=== PATIENT | female | born 1945 | race Caucasian/White ===

== ENCOUNTER → 2023-10-22 | Outpatient (CLI) | payer MEDICARE, SELFPAY ==
[2023-10-22 18:13] LABS: Absolute Lymphocyte Count 2.19 X10^3/uL (0.83-4.51); Absolute Neutrophil Count 8.8 X10^3/uL (2.0-7.7); Basophil# 0.05 X10^3/uL; Basophil% 0.4 % (0-1); Eosinophil# 0.39 X10^3/uL; Eosinophils% 3.1 % (0-5); Hematocrit 41.1 % (37-47); Hemoglobin 12.9 g/dL (12.0-15.0); Lymphocyte # 2.19 X10^3/ul (0.83-4.51); Lymphocyte % 17.4 % (19-41); Mean Corp Hgb Conc 31.4 g/dL (32-36); Mean Corpuscular Hgb 28.9 pg (27.0-32.0); Mean Corpuscular Volume 91.9 fL (81-99); Mean Platelet Vol. 11.1 fl (6.2-12.0); Monocyte# 1.08 X10^3/uL; Monocyte% 8.6 % (0-10); NRBC Flagged by Analyzer 0 % (0-5); Neutrophil # 8.78 X10^3/uL (2.7-7.7); Neutrophil % 69.9 % (47-70); Platelet Count 447 K/mm3 (150-450); RBC Distribution Width CV 12.5 % (11.6-14.6); RBC Distribution Width SD 42.2 fl (35.1-43.9); Red Blood Count 4.47 M/mm3 (4.2-5.4); White Blood Count 12.6 K/mm3 (4.4-11.0)
[2023-10-22 18:29] LABS: Vitamin D,25 Hydroxy 57.2 ng/mL
[2023-10-22 18:38] LABS: ALB/GLOB Ratio 0.7 RATIO (0.9-2.4); AST(SGOT) 27 U/L (15-37); Alanine Aminotransfer ALT/SGPT 29 U/L (13-56); Albumin, Serum 3.4 g/dL (3.2-5.0); Alkaline Phosphatase 78 U/L (45-117); Anion Gap 6 (5-15); BUN 14 mg/dL (7-18); BUN/Creat Ratio 20.5 RATIO (10-20); Calcium,Total 9.7 mg/dL (8.5-10.1); Chloride 107 mmol/L (98-107); Cholesterol 169 mg/dL (200); Creatinine, Serum 0.68 mg/dL (0.55-1.02); EST Glomerular Filtration Rate 88 mL/min (>60); Est Glom Filt Rate - Afr Amer 107 mL/min (>60); Globulin 4.7 g/dL (2.2-4.2); Glucose 81 mg/dL (74-106); High Density Lipoprotein 49 mg/dL; Potassium 3.8 mmol/L (3.5-5.1); Protein, Total 8.1 g/dL (6.4-8.2); Sodium Level 141 mmol/L (136-145); Thyroid Stim Hormone (TSH) 0.91 uIU/mL (0.358-3.74); Triglycerides 80 mg/dL; Very Low Density Lipoprotein 16 mg/dL (5-40)
== END | disposition home or self-care (01) ==
LOC: MFPLAB 15:31
PROVIDERS: PCP Family Medicine; Visit Provider Family Medicine
DX: R60.9 Edema, unspecified (principal); E78.2 Mixed hyperlipidemia; M81.0 Age-related osteoporosis without current pathological fracture
CPT/HCPCS: 36415; 80053; 80061; 82306; 84443; 85025

== ENCOUNTER → 2023-11-11 | Outpatient (CLI) | payer MEDICARE, SELFPAY ==
[2023-11-11 17:38] LABS: Absolute Lymphocyte Count 2.31 X10^3/uL (0.83-4.51); Absolute Neutrophil Count 4.3 X10^3/uL (2.0-7.7); Basophil# 0.06 X10^3/uL; Basophil% 0.7 % (0-1); Eosinophil# 0.57 X10^3/uL; Eosinophils% 7.1 % (0-5); Hematocrit 38.6 % (37-47); Hemoglobin 12.3 g/dL (12.0-15.0); Lymphocyte # 2.31 X10^3/ul (0.83-4.51); Lymphocyte % 28.8 % (19-41); Mean Corp Hgb Conc 31.9 g/dL (32-36); Mean Corpuscular Hgb 28.7 pg (27.0-32.0); Mean Corpuscular Volume 90.2 fL (81-99); Mean Platelet Vol. 11.6 fl (6.2-12.0); Monocyte# 0.77 X10^3/uL; Monocyte% 9.6 % (0-10); NRBC Flagged by Analyzer 0 % (0-5); Neutrophil # 4.28 X10^3/uL (2.7-7.7); Neutrophil % 53.6 % (47-70); Platelet Count 279 K/mm3 (150-450); RBC Distribution Width CV 13.2 % (11.6-14.6); RBC Distribution Width SD 43.2 fl (35.1-43.9); Red Blood Count 4.28 M/mm3 (4.2-5.4)
== END | disposition home or self-care (01) ==
LOC: MFPLAB 14:54
PROVIDERS: PCP Family Medicine; Visit Provider Family Medicine
DX: D72.829 Elevated white blood cell count, unspecified (principal)
CPT/HCPCS: 36415; 85025

== ENCOUNTER → 2023-12-04 | Outpatient (CLI) | payer MEDICARE, SELFPAY ==
--- NOTE | 2023-12-04 14:04 | BD_ITS ---
STUDY: DUAL ENERGY X-RAY ABSORPTIOMETRY / DXA REASON FOR EXAM: Female, 78 years old. [id number] TECHNIQUE: Bone Mineral Density (BMD) measurements of lumbar spine and bilateral hips were obtained. COMPARISON: None. FINDINGS: Lumbar Spine (L1-L4): g/cm2 (0.816) / T-score (-2.1) / Z-score (0.5) Findings are suggestive of osteopenia with a high fracture risk. Left Femur Total: g/cm2 (0.701) / T-score (-2.0) / Z-score (0.0) Left Femoral Neck: g/cm2 (0.548) / T-score (-2.7) / Z-score (-0.5) Right Femur Total: g/cm2 (0.705) / T-score (-1.9) / Z-score (0.0) Right Femoral Neck: g/cm2 (0.590) / T-score (-2.3) / Z-score (-0.1) BD/Dexa Bone Density Study IMPRESSION: The patient is considered osteoporotic as outlined below according to World [employer] Organization (WHO) criteria with a high fracture risk. Reference Information: The T-score is the number of standard deviations above or below the standard which is normal for young adults at their peak bone mineral density. The World Health Organization (WHO) interprets the T-scores as follows: Above -1 Normal bone density Between -1 and -2.5 Osteopenia Equal to / or below -2.5 Osteoporosis As a practical clinical guideline, osteopenia may be graded as follows: Mild -1 through -1.5 Moderate -1.6 through -2.0 Severe -2.1 through -2.4 The Z-score is the number of standard deviations above or below age-matched controls. A Z-score of less than -1.5 would be considered abnormal. References: 1. NIH Osteoporosis and Related Bone Diseases www osteo.org 2. International Society for Clinical Densitometry www iscd.org 3. National Osteoporosis Foundation www nof.org Electronically Signed: Dalton Meyer MD at 15:06 EST ,
--- OUTSIDE RECORDS SUMMARY | 2023-12-04 17:53 | XMS RPT_ITS | CCD ---
Author Name Unknown Address [address] [facility] [address] [place] [address] Organization [facility] Care Team Providers Care Engineering Analyst Name Role Phone Sonja MIRANDA, Ronald Montez Primary Care Provider SONJA, RONALD Primary Care Unavailable LUZ MARIA, FOSTER Referring Unavailable LUZ MARIA, FOSTER Attending Unavailable SONJA, RONALD Primary Care Unavailable LUZ MARIA, FOSTER Referring Unavailable LUZ MARIA, FOSTER Attending Unavailable SONJA, RONALD Primary Care Unavailable LUZ MARIA, FOSTER Referring Unavailable LUZ MARIA, FOSTER Attending Unavailable BRIDENTHAL, MINNIE Attending Unavailable BRIDENTHAL, MINNIE Referring Unavailable SONJA, RONALD Primary Care Unavailable SONJA, RONALD Primary Care Unavailable LUZ MARIA, FOSTER Attending Unavailable LUZ MARIA, FOSTER Referring Unavailable LUZ MARIA, FOSTER Attending Unavailable SONJA, RONALD Primary Care Unavailable LUZ MARIA, FOSTER Referring Unavailable SONJA, RONALD Primary Care Unavailable LUZ MARIA, FOSTER Referring Unavailable LUZ MARIA, FOSTER Attending Unavailable SONJA, RONALD Primary Care Unavailable LUZ MARIA, FOSTER Referring Unavailable LUZ MARIA, FOSTER Attending Unavailable SONJA, RONALD Referring Unavailable LUZ MARIA, FOSTER Attending Unavailable SONJA, RONALD Primary Care Unavailable SONJA, RONALD Attending Unavailable SONJA, RONALD Primary Care Unavailable BRIDENTHAL, MINNIE Attending Unavailable SONJA, RONALD Primary Care Unavailable SONJA, RONALD Attending Unavailable SONJA, RONALD Primary Care Unavailable SONJA, RONALD Primary Care Unavailable LUZ MARIA, FOSTER Referring Unavailable SONJA, RONALD Attending Unavailable SONJA, RONALD Primary Care Unavailable SONJA, RONALD Primary Care Unavailable BRIDENTHAL, MINNIE Attending Unavailable SONJA, RONALD Primary Care Unavailable SONJA, RONALD Attending Unavailable BRIDENTHAL, MINNIE Attending Unavailable SONJA, RONALD Primary Care Unavailable LUZ MARIA, FOSTER Attending Unavailable SONJA, RONALD Primary Care Unavailable LUZ MARIA, FOSTER Referring Unavailable RONALD CASILLAS Attending Unavailable RONALD CASILLAS Primary Care Unavailable RONALD CASILLAS Referring Unavailable RONALD CASILLAS Attending Unavailable RONALD CASILLAS Primary Care Unavailable RONALD CASILLAS Primary Care Unavailable RONALD CASILLAS Referring Unavailable RONALD CASILLAS Attending Unavailable RONALD CASILLAS Attending Unavailable RONALD CASILLAS Primary Care Unavailable RONALD CASILLAS Attending Unavailable RONALD CASILLAS Primary Care Unavailable RONALD CASILLAS Primary Care Unavailable FOSTER LOERA Referring Unavailable Ronald Casillas MD Primary Care Provider Allergies Allergy Classification Reported Allergen(s) Allergy Type Date of Onset Reaction(s) Facility (20 sources) Penicillins Drug Intolerance [address] [facility] (17 sources) traMADol Drug Allergy 3 Nausea Only, Other [facility] Medications Current Medications Medication Drug Class(es) Dates Sig (Normalized) Sig (Original) ascorbic acid 113 mg / copper gluconate 0.4 mg / docosahexaenoic acid 87.5 mg / eicosapentaenoic acid 163 mg / lutein 2.5 mg / tocopherol acetate 100 unt / zeaxanthin 0.5 mg / zinc oxide 17.4 mg oral capsule (20 sources) Vitamin C Multiple Vitamins-Minerals (PreserVision AREDS 2) capsule Take by mouth. 0 Active atorvastatin 10 mg oral tablet (20 sources) HMG-CoA Reductase Inhibitor Start: 11-09-2022 End: 08-05-2023 take 1 tablet by mouth in the morning atorvastatin (Lipitor) 10 MG tablet TAKE 1 TABLET BY MOUTH IN THE MORNING 90 tablet 0 08/05/2023 Active B Complex Vitamins (B COMPLEX PO) (20 sources) B Complex Vitami ns (B COMPLEX PO) Take by mouth. 0 Active Calcium Carb-Cholecalciferol (CALCIUM 1000 + D PO) (20 sources) Calcium Carb-Cholecalciferol (CALCIUM 1000 + D PO) Take by mouth. 0 Active cholecalciferol 0.025 mg oral capsule (20 sources) Vitamin D cholecalciferol (Vitamin D-3) 25 MCG (1000 UT) capsule Take by mouth. 0 Active COD LIVER OIL/VITAMINS A & D PO (20 sources) COD LIVER OIL/VITAMINS A & D PO Take by mouth. 0 Active ferrous sulfate (20 sources) Ferrous Sulfate Dried (High Potency Iron) 65 MG tablet Take by mouth. 0 Active furosemide 40 mg oral tablet (20 sources) Loop Diuretic Start: 07-08-2023 take 0.5 tablet by mouth once daily furosemide (Lasix) 40 MG tablet Take 0.5 tablets (20 mg) by mouth daily. 30 tablet 1 07/08/2023 Active Completed/Discontinued Medications Medication Drug Class(es) Dates Sig (Normalized) Sig (Original) clindamycin 150 mg oral capsule (1 source) Lincosamide Antibacterial Start: 10-29-2022 End: 01-28-2023 take 1 capsule by mouth twice daily clindamycin (Cleocin) 150 MG capsule TAKE 1 CAPSULE BY MOUTH TWICE DAILY UNTIL GONE 0 10/29/2022 01/28/2023 Discontinued (Med list cleanup) 28 actuat teriparatide 0.02 mg/actuat pen injector (1 source) Parathyroid Hormone Analog Start: 11-02-2022 End: 01-29-2023 inject 20 ug by subcutaneous injection once daily Forteo injection INJECT 20MCG UNDER THE SKIN ONCE DAILY 9.6 mL 0 11/02/2022 01/29/2023 Discontinued traMADol hydrochloride 50 mg oral tablet (3 sources) Opioid Agonist Start: 06-10-2023 End: 06-17-2023 take 1 tablet by mouth every six hours as needed for pain traMADol (Ultram) 50 MG tablet Indications: Acute left ankle pain Take 1 tablet (50 mg) by mouth every 6 hours as needed for severe pain (7-10) for up to 7 days. 28 tablet 0 06/10/2023 06/11/2023 Discontinued (Side effects) Problems Active Problems Problem Classification Problem Date Documented Da te Episodic/Chronic Disorders of lipid metabolism (20 sources) Hyperlipidemia; Translations: [Hyperlipidemia, unspecified] Onset: 04-27-2021 07-27-2022 Chronic Nutritional deficiencies (20 sources) Vitamin D deficiency; Translations: [Vitamin D deficiency, unspecified] Onset: 04-27-2021 07-27-2022 Chronic Osteoporosis (20 sources) Senile osteoporosis; Translations: [Age-related osteoporosis without current pathological fracture] Onset: 11-09-2021 07-27-2022 Chronic Other connective tissue disease (20 sources) Pain in left foot; Translations: [Pain in left foot] Onset: 05-22-2023 05-22-2023 Episodic Other connective tissue disease (2 sources) Pain in left foot; Translations: [Pain in left foot] Onset: 05-22-2023 Episodic Other connective tissue disease (2 sources) Trigger thumb, right thumb; Translations: [Trigger thumb, right thumb] Onset: 02-13-2023 Episodic Other female genital disorders (3 sources) Pain in female genitalia on intercourse; Translations: [Unspecified dyspareunia] Onset: 08-07-2023 08-07-2023 Chronic Other non-traumatic joint disorders (3 sources) Arthralgia of the ankle and/or foot; Translations: [Pain in left ankle and joints of left foot] Onset: 06-03-2023 05-15-2023 Episodic Other non-traumatic joint disorders (5 sources) Acute ankle pain; Translations: [Pain in left ankle and joints of left foot] 06-03-2023 Episodic Other non-traumatic joint disorders (1 source) Pain in left ankle and joints of left foot; Translations: [Pain in left ankle and joints of left foot] Onset: 05-13-2023 Episodic Other screening for suspected conditions (not mental disorders or infectious disease) (2 sources) Encounter for screening for diabetes mellitus; Translations: [Encounter for screening for diabetes mellitus] Onset: 05-13-2023 Episodic Spondylosis; intervertebral disc disorders; other back problems (20 sources) Sciatica; Translations: [Sciatica, left side] Onset: 05-22-2023 05-22-2023 Episodic Unclassified (2 sources) Trigger Finger; Translations: [Trigger Finger] Onset: 07-08-2023 Unclassified (2 sources) Injections; Translations: [Injections] Onset: 05-14-2023 Unclassified (2 sources) Finger Pain; Translations: [Finger Pain] Onset: 02-13-2023 Unclassified (2 sources) Medication Problem; Translations: [Medication Problem] Onset: 11-21-2022 Unclassified (2 sources) Medication Check; Translations: [Medication Check] Onset: 11-09-2022 Unclassified (2 sources) Health Maintenance; Translations: [Health Maintenance] Onset: 11-09-2022 Past or Other Problems Problem Classification Problem Date Documented Da te Episodic/Chronic Disorders of teeth and jaw (20 sources) Toothache; Translations: [Other specified disorders of teeth and supporting structures] Onset: 11-21-2022 11-21-2022 Episodic Nutritional deficiencies (20 sources) Cobalamin deficiency; Translations: [Deficiency of other specified B group vitamins] Onset: 11-09-2021 07-27-2022 Episodic Other connective tissue disease (20 sources) Pain in right thumb; Translations: [Pain in right finger(s)] Onset: 01-29-2023 Episodic Other connective tissue disease (20 sources) Trigger thumb of right hand; Translations: [Trigger thumb, right thumb] Onset: 02-13-2023 02-13-2023 Episodic Other connective tissue disease (2 sources) Pain in right finger(s); Translations: [Pain in right finger(s)] Onset: 01-29-2023 Episodic Other non-traumatic joint disorders (20 sources) Ankle pain; Translations: [Pain in left ankle and joints of left foot] Onset: 05-13-2023 05-13-2023 Episodic Residual codes; unclassified (20 sources) Edema; Translations: [Edema, unspecified] Onset: 04-27-2021 07-27-2022 Episodic Results Test Name Value Interpretation Reference Range Facil ity Vital Signs Date Time Vital Sign Value Performing Clinician Faci lity 08-07-2023 15:09-0400 Body mass index (BMI) [Ratio] 26.26 kg/m2 Minnie Rainesmikijose DRUM CARRIER - FLOOR RENOVATOR Work Phone: [facility] 08-07-2023 15:09-0400 Body temperature 98.4 [degF] Minnie Rainesmikijose DRUM CARRIER - FLOOR RENOVATOR Work Phone: [facility] 08-07-2023 15:09-0400 Body weight 63.05 kg Minnie Lopez DRUM CARRIER - FLOOR RENOVATOR Work Phone: [facility] 08-07-2023 15:09-0400 Diastolic blood pressure 73 mm[Hg] Minnie Rainesmikijose DRUM CARRIER - FLOOR RENOVATOR Work Phone: [facility] 08-07-2023 15:09-0400 Heart rate 90 /min Minnie Lopez DRUM CARRIER - FLOOR RENOVATOR Work Phone: [facility] 08-07-2023 15:09-0400 Respiratory rate 20 /min Minnie Bridenthal DRUM CARRIER - FLOOR RENOVATOR Work Phone: [facility] 08-07-2023 15:09-0400 SaO2% (BldA) [Mass fraction] 96 % Minnie Bridenthal DRUM CARRIER - FLOOR RENOVATOR Work Phone: [facility] 08-07-2023 15:09-0400 Systolic blood pressure 128 mm[Hg] Minnie Bridenthal DRUM CARRIER - FLOOR RENOVATOR Work Phone: [facility] 06-11-2023 10:17-0400 Body temperature 97.81 [degF] Minnie Bridenthal DRUM CARRIER - FLOOR RENOVATOR Work Phone: [facility] 06-11-2023 10:17-0400 Diastolic blood pressure 72 mm[Hg] Minnie Bridenthal DRUM CARRIER - FLOOR RENOVATOR Work Phone: [facility] 06-11-2023 10:17-0400 Heart rate 89 /min Minnie Bridenthal DRUM CARRIER - FLOOR RENOVATOR Work Phone: [facility] 06-11-2023 10:17-0400 Respiratory rate 24 /min Minnie Bridenthal DRUM CARRIER - FLOOR RENOVATOR Work Phone: [facility] 06-11-2023 10:17-0400 SaO2% (BldA) [Mass fraction] 98 % Minnie Bridenthal DRUM CARRIER - FLOOR RENOVATOR Work Phone: [facility] 06-11-2023 10:17-0400 Systolic blood pressure 118 mm[Hg] Minnie Bridenthal DRUM CARRIER - FLOOR RENOVATOR Work Phone: [facility] 06-03-2023 06:55-0400 Body height 154.9 cm Ronald Casillas MD Work Phone: [facility] 06-03-2023 06:55-0400 Body mass index (BMI) [Ratio] 25.96 kg/m2 Ronald Casillas MD Work Phone: [facility] 06-03-2023 06:55-0400 Body weight 62.32 kg Ronald Casillas MD Work Phone: [facility] 06-03-2023 06:55-0400 Diastolic blood pressure 75 mm[Hg] Ronald Casillas MD Work Phone: [facility] 06-03-2023 06:55-0400 Heart rate 101 /min Ronald Casillas MD Work Phone: [facility] 06-03-2023 06:55-0400 SaO2% (BldA) [Mass fraction] 98 % Ronald Casillas MD Work Phone: [facility] 06-03-2023 06:55-0400 Systolic blood pressure 120 mm[Hg] Ronald Casillas MD Work Phone: [facility] 05-22-2023 13:49-0400 Body mass index (BMI) [Ratio] 26.83 kg/m2 Minnie Bridenthal DRUM CARRIER - FLOOR RENOVATOR Work Phone: [facility] 05-22-2023 13:49-0400 Body temperature 98.4 [degF] Minnie Bridenthal DRUM CARRIER - FLOOR RENOVATOR Work Phone: [facility] 05-22-2023 13:49-0400 Body weight 64.41 kg Minnie Bridenthal DRUM CARRIER - FLOOR RENOVATOR Work Phone: [facility] 05-22-2023 13:49-0400 Diastolic blood pressure 80 mm[Hg] Minnie Bridenthal DRUM CARRIER - FLOOR RENOVATOR Work Phone: [facility] 05-22-2023 13:49-0400 Heart rate 80 /min Minnie Bridenthal DRUM CARRIER - FLOOR RENOVATOR Work Phone: [facility] 05-22-2023 13:49-0400 Respiratory rate 20 /min Minnie Bridenthal DRUM CARRIER - FLOOR RENOVATOR Work Phone: [facility] 05-22-2023 13:49-0400 SaO2% (BldA) [Mass fraction] 99 % Minnie Bridenthal DRUM CARRIER - FLOOR RENOVATOR Work Phone: [facility] 05-22-2023 13:49-0400 Systolic blood pressure 132 mm[Hg] Minnie Bridenthal DRUM CARRIER - FLOOR RENOVATOR Work Phone: [facility] 05-14-2023 14:11-0400 Body height 154.9 cm Ronald Casillas MD Work Phone: [facility] 05-14-2023 14:11-0400 Body mass index (BMI) [Ratio] 27.25 kg/m2 Ronald Casillas MD Work Phone: [facility] 05-14-2023 14:11-0400 Body weight 65.41 kg Ronald Casillas MD Work Phone: [facility] 05-14-2023 14:11-0400 Diastolic blood pressure 66 mm[Hg] Ronald Casillas MD Work Phone: [facility] 05-14-2023 14:11-0400 Heart rate 74 /min Ronald Casillas MD Work Phone: [facility] 05-14-2023 14:11-0400 SaO2% (BldA) [Mass fraction] 95 % Ronald Casillas MD Work Phone: [facility] 05-14-2023 14:11-0400 Systolic blood pressure 144 mm[Hg] Ronald Casillas MD Work Phone: [facility] 01-28-2023 15:44-0400 Body mass index (BMI) [Ratio] 27.4 kg/m2 Minnie Bridenthal DRUM CARRIER - FLOOR RENOVATOR Work Phone: [facility] 01-28-2023 15:44-0400 Body weight 65.77 kg Minnie Bridenthal DRUM CARRIER - FLOOR RENOVATOR Work Phone: [facility] 01-28-2023 15:44-0400 Diastolic blood pressure 64 mm[Hg] Minnie Bridenthal DRUM CARRIER - FLOOR RENOVATOR Work Phone: [facility] 01-28-2023 15:44-0400 Heart rate 76 /min Minnie Bridenthal DRUM CARRIER - FLOOR RENOVATOR Work Phone: [facility] 01-28-2023 15:44-0400 Respiratory rate 20 /min Minnie Bridenthal DRUM CARRIER - FLOOR RENOVATOR Work Phone: [facility] 01-28-2023 15:44-0400 SaO2% (BldA) [Mass fraction] 98 % Minnie Bridenthal DRUM CARRIER - FLOOR RENOVATOR Work Phone: [facility] 01-28-2023 15:44-0400 Systolic blood pressure 110 mm[Hg] Minnie Bridenthal DRUM CARRIER - FLOOR RENOVATOR Work Phone: [facility] Encounters Encounter Date Encounter Type Care Provider Facility Start: 08-07-2023 End: 08-07-2023 Office outpatient visit 15 minutes Minnie Oluenthal DRUM CARRIER - FLOOR RENOVATOR Work Phone: [facility] Procedures Date Procedure Procedure Detail Performing Clinician Start: 05-13-2023 Adult depression screening assessment Ronald Casillas MD Work Phone: Plan of Treatment Date Care Activity Detail Author Start: 06-12-2024 Medicare Advantage Annual Wellness Visit (AWV) Medicare Advantage Annual Wellness Visit (AWV) [facility] Start: 05-14-2024 End: 05-14-2024 Patient encounter procedure 05/14/2024 8:30 AM EDT Office Visit [facility] [address] [place] [id number] Ronald Casillas MD [address] [place] [id number] [facility] Start: 05-13-2024 COVID-19 Vaccine (4 - Booster for Pfizer series) COVID-19 Vaccine (4 - Booster for Pfizer series) [facility] Immunizations Immunization Date Immunization Notes Care Provider Fa cility 06-21-2022 Influenza, Seasonal, Quadrivalent, Adjuvanted Minnie Oluenthal DRUM CARRIER - FLOOR RENOVATOR Work Phone: [facility] 06-21-2022 influenza virus vacc ine, unspecified formulation Ronald Casillas MD Work Phone: [facility] 08-29-2021 Pfizer SARS-CoV-2 Vaccination Minnie Bridenthal DRUM CARRIER - FLOOR RENOVATOR Work Phone: [facility] 07-19-2021 Influenza, Seasonal, Quadrivalent, Adjuvanted Minnie Oluenthal DRUM CARRIER - FLOOR RENOVATOR Work Phone: [facility] 02-08-2021 Pfizer SARS-CoV-2 Vaccination Minnie Oluenthal DRUM CARRIER - FLOOR RENOVATOR Work Phone: [facility] 01-18-2021 Pfizer SARS-CoV-2 Vaccination Minnie Oluenthal DRUM CARRIER - FLOOR RENOVATOR Work Phone: [facility] Payers Date Payer Category Payer Medicare [employer] MEDICARE A DVANTAGE AETNA MEDICARE [id number] 2021-Present [address] [place] [address] Medicare HMO [id number] 2021 Medicare [id number] Social History Date Type Detail Facility Tobacco smoking status NHIS Never smoked tobacco [facility] Start: 01-28-2023 End: 05-14-2023 Alcohol intake Current non-drinker of alcohol (finding) [facility] Start: 11-08-2022 History SDOH Financial 5 [facility] Start: 11-08-2022 History SDOH Food Worry 1 [facility] Start: 11-08-2022 History SDOH Transport Med 2 [facility] Start: 1945 Sex Assigned At Not on file [facility] Start: 01-18-2023 End: 07-08-2023 Exposure to SARS-CoV-2 (event) Not sure [facility] Start: 02-12-2023 End: 05-13-2023 History of [address] function [facility] Start: 02-12-2023 End: 05-13-2023 Tobacco use panel [facility] How hard is it for y ou to pay for the very basics like food, housing, medical care, and heating Not hard at all [facility] (I/We) worried wheth er (my/our) food would run out before (I/we) got money to buy more. Never true [facility] How often to you hav e a drink containing alcohol? Never [facility] In the past 12 month s, was there a time when you were not able to pay the mortgage or rent on time? No [facility] Medical Equipment Procedure Code Equipment Code Equipment Origin al Text Equipment Identifier Dates USE PEN NEEDLE O NCE DAILY [id number] Start: 10-25-2022 End: 01-28-2023 Use as instructed [id number] Start: 07-23-2023 End: 07-22-2024 Clinical Notes 01-28-2023 to 08-07-2023 Assessment & Plan Note - KENNY Chin CNP - 08/07/2023 5:43 PM EDTAssessment & Plan Note - KENNY Chin CNP - 08/07/2023 5:43 PM EDTPatient InstructionsAttachments Note Date & Type Note Facility 08-07-2023 Evaluation + Plan note Associated Problem(s): Dyspareunia, female Pelvic exam unremarkable. No cervical motion tenderness no masses or pain with bimanual exam. Suspect dyspareunia secondary to insufficient lubrication. Recommend [id number]-xqf-[id number] vaginal suppositories to help with moisture prior to intercourse, using generous amounts of topical lubricant also. Reassurance provided. [facility] 08-07-2023 Miscellaneous Notes Associated Problem(s): Dyspareunia, female Pelvic exam unremarkable. No cervical motion tenderness no masses or pain with bimanual exam. Suspect dyspareunia secondary to insufficient lubrication. Recommend ddng-lmy-wlocvhd vaginal suppositories to help with moisture prior to intercourse, using generous amounts of topical lubricant also. Reassurance provided. documented in this encounter [facility] 08-07-2023 History of Presen t illness Narrative Patient was identified by name and Date of . Images from the original note were not included. 08/07/2023 Kristi Weiner (: 1945) is a 78 y.o. female , Established patient, here for evaluation of the following chief complaint(s): Abdominal Pain ASSESSMENT/PLAN: 1. Dyspareunia, female Assessment & Plan: Pelvic exam unremarkable. No cervical motion tenderness no masses or pain with bimanual exam. Suspect dyspareunia secondary to insufficient lubrication. Recommend feeb-fai-tnnycvy vaginal suppositories to help with moisture prior to intercourse, using generous amounts of topical lubricant also. Reassurance provided. Follow up if symptoms worsen or fail to improve. SUBJECTIVE/OBJECTIVE: HPI - Kristi Weiner (: 1945) is a 78 y.o. female , Established patient, here for the evaluation of the following chief complaint(s): Abdominal Pain Presents today for pain with intercourse. Reports that she has had in the last couple years increased pain in the abdomen when having intercourse. States it is only with penetration. No bleeding. Reports that the abdomen will be slightly sore after intercourse but quickly feels back to normal. Her and her (86yo) have not been sexually active for the last month or 2 but wanted to come in and get checked out as it has been painful with intercourse. Denies any change in bowel or bladder. States that they do use K-Y jelly and her puts it on his penis prior to intercourse. Prior to Admission medications Medication Sig Start Date End Date Taking? Authorizing Provider alpha tocopherol (Vitamin E) 400 units capsule Take 400 Units by mouth. Yes Historical Provider, atorvastatin (Lipitor) 10 MG tablet TAKE 1 TABLET BY MOUTH IN THE MORNING 08/05/23 Yes Minnie Lopez APRN - KAY B Complex Vitamins (B COMPLEX PO) Take by mouth. Yes Historical Provider, Calcium Carb-Cholecalciferol (CALCIUM 1000 + D PO) Take by mouth. Yes Historical Provider, cholecalciferol (Vitamin D-3) 25 MCG (1000 UT) capsule Take by mouth. Yes Historical Provider, COD LIVER OIL/VITAMINS A & D PO Take by mouth. Yes Historical Provider, coenzyme Q-10 50 MG capsule Take by mouth. Yes Historical Provider, cyanocobalamin (Vitamin B-12) 1000 MCG tablet Take 1,000 mcg by mouth daily. Yes Historical Provider, Ferrous Sulfate Dried (High Potency Iron) 65 MG tablet Take by mouth. Yes Historical Provider, furosemide (Lasix) 40 MG tablet Take 0.5 tablets (20 mg) by mouth daily. 07/08/23 Yes Ronald Casillas MD insulin pen needle (ReliOn Pen [place]) 32G x 4 mm misc Use as instructed 07/23/23 07/22/24 Yes KENNY Chin CNP ketoconazole (NIZOral) 2 % shampoo WASH THE SCALP ONCE WEEKLY, LET SIT 5-10 MINUTES BEFORE RINSING OUT 07/07/22 Yes Historical Provider, lidocaine (Lidoderm) 5 % patch Apply 1 patch topically daily. Remove & discard patch within 12 hours or as directed by . 06/11/23 Yes KENNY Chin CNP magnesium gluconate (Magonate) 500 MG tablet Take 500 mg by mouth. Yes Historical Provider, meloxicam (Mobic) 15 MG tablet Take 0.5 tablets (7.5 mg) by mouth 2 times daily. 07/08/23 Yes Ronald Casillas MD Multiple Vitamins-Minerals (Hair Skin and Nails Formula) tablet Take by mouth. Yes Historical Provider, Multiple Vitamins-Minerals (PreserVision AREDS 2) capsule Take by mouth. Yes Historical Provider, atorvastatin (Lipitor) 10 MG tablet TAKE 1 TABLET BY MOUTH IN THE MORNING 04/29/23 08/05/23 KENNY Chin CNP Review of Systems Constitutional: Negative for appetite change, fatigue and fever. Genitourinary: Positive for dyspareunia. Negative for difficulty urinating, dysuria, frequency, hematuria, vaginal bleeding and vaginal pain. Vitals: 08/07/23 1509 BP: 128/73 Pulse: 90 Resp: 20 Temp: 36.9 C (98.4 F) TempSrc: Infrared SpO2: 96% Weight: 139 lb (63 kg) Physical Exam Constitutional: General: She is not in acute distress. Appearance: Normal appearance. She is not ill-appearing. HENT: Head: Normocephalic and atraumatic. Pulmonary: Effort: Pulmonary effort is normal. Abdominal: General: Abdomen is flat. Bowel sounds are normal. Palpations: Abdomen is soft. There is no mass. Tenderness: There is no abdominal tenderness. Hernia: No hernia is present. Genitourinary: Labia: Right: No rash, tenderness, lesion or injury. Left: No rash, tenderness, lesion or injury. Urethra: Prolapse (mild) present. No urethral pain, urethral swelling or urethral lesion. Vagina: No signs of injury. No vaginal discharge, erythema, bleeding or prolapsed vaginal booker. Cervix: Normal. No cervical motion tenderness, friability, erythema or cervical bleeding. Uterus: Not enlarged and no uterine prolapse. Adnexa: Right adnexa normal and left adnexa normal. Right: No mass, tenderness or fullness. Left: No mass, tenderness or fullness. Comments: Mild vaginal atrophy noted Skin: General: Skin is warm and dry. Neurological: Mental Status: She is alert and oriented to person, place, and time. An electronic signature was used to authenticate this note. KENNY Chin CNP 08/07/2023 5:44 PM documented in this encounter [facility] 08-07-2023 Instructions KENNY Chin CNP - 08/07/2023 3:20 PM EDT Get vaginal suppository for lubrication/vaginal dryness (next to KHANG spangler) at pharmacy documented in this encounter [facility] 08-05-2023 Telephone encounter Note Reviewed chart. Refill appropriate. RX sent. [facility] 08-05-2023 Miscellaneous Notes Reviewed chart. Refill appropriate. RX sent. Prescription Request: Last medication check: 11/09/22 Last physical exam: 05/13/23 Next scheduled appointment: 08/07/23 Last date of refill on this medication 04/29/23 90 day no refill documented in this encounter [facility] 08-05-2023 Telephone encounter Note Prescription Request: Last medication check: 11/09/22 Last physical exam: 05/13/23 Next scheduled appointment: 08/07/23 Last date of refill on this medication 04/29/[address] [facility] 07-16-2023 History of Presen t illness Narrative Images from the original note were not included. [facility] AT [address] [place] [address] Dept: [phone] Dept PHYSICAL THERAPY RE-EVALUATION/DISCHARGE Patient Name: Kristi Weiner : 1945 Date of Service: 07/16/2023 Referring Provider: Foster Loera MD Visit #: 9 Diagnosis: Acute left-sided low back pain with left-sided sciatica Reason for referral/Mechanism of injury: 7 weeks of L LBP and travels into the ankle/foot. Patient had radiographs. No KILO. No bowel or bladder incontinence. No pain with cough/sneeze. Pt is active as she swims, exercises at the [facility]. Pt also rides her bike in her christianity parking lot. Pt is active at her christianity. Patient Preferences: Kristi Precautions/Red Flags: None Subjective General Comments: Pt had felt she was doing good and ready to complete therapy, but pain was very bad yesterday. She is very faithful doing HEP and has been walking 5days/wk and swimming at gym. She felt 100% 2 days ago, 80%. Chief Complaint: L LBP into the LE to the foot which is shooting, very bad and pt also has L LE numbness. Pain is unbearable. Patient reports that her L LE feels weak/unstable at times, but denies falls. Pain: Current: 1-2/10 Best: 1/10 Worst: 5/10 Patient s Stated Goal: Abolish concordant symptoms, return to PLOF Objective Gait: Antalgic at times, no device, pt ambulates modified independent Back ROM Trunk AROM Percentage 06/19/23 Percentage 07/16/23 Flexion (flex) No loss Extension (ext) Mod loss w/ L LE symptoms WNL, pain Right side bending (SBR) No loss Left side bending (SBL) No loss Right rotation (rotR) Min loss Left rotation (rotL) Mod loss w/ pain WNL, no pain 06/19/23 07/16/23 Myotomes/LE Strength Right Left Right Left Hip Flexion (L2-L3) 5/5 5/5 Hip Abduction 5/5 4-/5 w/ pain 4-/5 pain Seated Hip Adduction 5/5 5/5 Hip Extension 3-/5 3-/5 w/ pain 4/5 4/5 Knee Extension (L3-L4) 5/5 5/5 Knee Flexion (S2) 5/5 5/5 Ankle DF (L5) 5/5 5/5 Ankle PF (S1) 5/5 5/5 Joint Mobility: Central PA mobs L5, unilateral PA mobs L L5/S1, unilateral PA mobs L L5/S1 Oswestry Low Back Disability: 06/19/23= 39 (raw score) Assessment 78 yo female has participated in 1 month of PT for LBP, with tx focusing on core stabilization. Pain range of 5-8/10 has improved to 1-5/10 and feels 80% PLOF. She has met most goals and feels she can continue improving on her own. HEP was updated last tx session and pt feels independent. Educated on using rolling pin lightly for massage on legs. Discussed POC and determined discharge. Goals Active General/Ortho Patient will be independent with HEP. (Completed) Start: 06/19/23 Expected End: 07/17/23 Resolved: 07/16/23 Patient will report decreased pain at 0/10 and abolish all radicular symptoms and report at least a 90% return to her PLOF to optimize her QOL. (Progressing) Start: 06/19/23 Expected End: 07/17/23 Goal Note 1-5/10 (from 5-8/10) and feels 80% PLOF Patient will increase AROM of the trunk to full in all directions without symptoms to promote return to baseline activities. (Completed) Start: 06/19/23 Expected End: 07/17/23 Resolved: 07/16/23 Patient will increase strength in B LE's to 5/5 throughout to promote return to baseline activities. (Progressing) Start: 06/19/23 Expected End: 07/17/23 Goal Note Continues to have weakness, although improved. Gait: Patient will demonstrate no gait deviations to promote return to baseline function. (Completed) Start: 06/19/23 Expected End: 07/17/23 Resolved: 07/16/23 Functional Outcome Measure: Patient will improve her PETER score x at least 50% to promote return to baseline activities and optimize her QOL. (Completed) Start: 06/19/23 Expected End: 07/17/23 Resolved: 07/16/23 Goal Note Not tested, but feels 80% Plan Discharge to [facility] (add reverse clamshells). Treatment Therapeutic Activity Therapeutic Activity 1: reassessment, goals, measures, POC Time Entry Total Treatment Time Start Time: 1333 Stop Time: 1359 Time Calculation (min): 26 min PT Therapeutic Procedures Time Entry Therapeutic Activity Time Entry: 26 Krasten West PT documented in this encounter [facility] 07-13-2023 History of Presen t illness Narrative Images from the original note were not included. [facility] AT [address] [place] [address] Dept: [phone] Dept PHYSICAL THERAPY TREATMENT Patient Name: Kristi Weiner : 1945 Date of Service: 07/13/2023 Referring Provider: Foster Loera MD Visit #: 8 Diagnosis: Acute left-sided low back pain with left-sided sciatica Reason for referral/Mechanism of injury: 7 weeks of L LBP and travels into the ankle/foot. Patient had radiographs. No KILO. No bowel or bladder incontinence. No pain with cough/sneeze. Pt is active as she swims, exercises at the [facility]. Pt also rides her bike in her christianity parking lot. Pt is active at her christianity. Patient Preferences: Kristi Precautions/Red Flags: None Subjective Pt reports that she is 2/10 today and but that she was a 7 or 8/10 yesterday. Says that she has some good days, and some bad days. States that her exercises seem to help her symptoms. Compliance with HEP: Yes Objective Objective measurements not taken today. Treatment Therapeutic Exercise Therapeutic Exercise Activity 4: lumbar flexion Activity 4 Comment: SKTC 10 3 ea, DKTC 10 x3, piriformis stretch 30 x2 ea, LTR x20, PPT 3 x10 Therapeutic Exercise Activity 5: strengthening Activity 5 Comment: bridge with PPT [id number] + sx, SLR x10, S/L hip ABD x10, clam 2x10, added H/l abd and TA marches 2 x10 ea 07/13/23 Assessment Skilled physical therapy interventions utilized to improve patient s impairments and work towards established goals. Patient response to treatment: Pt tolerated today's visit well today. Progressed hip exercises and core strengthening w/ no symptoms. Added TA marches and H/L TA abduction w/ YTB to HEP. Pt stated she plans on calling her insurance company before her next treatment on 07/16/23 to make sure she is covered for her last session. Pt states that if she is not covered, she plans on calling in and cancelling her next appointment and self discharging as she believes PT has really helped improve her QOL, and because she feels very comfortable performing her exercises at home. Patient will benefit from continued physical therapy to continue progress and improve QOL. The rationale for today s treatment was explained to the patient. Verbal cues were provided for correct form with all exercises. Advised patient to continue with Home Exercise Program (HEP). Goals General/Ortho Patient will be independent with HEP. (Progressing) Start: 06/19/23 Expected End: 07/17/23 Patient will report decreased pain at 0/10 and abolish all radicular symptoms and report at least a 90% return to her PLOF to optimize her QOL. (Progressing) Start: 06/19/23 Expected End: 07/17/23 Patient will increase AROM of the trunk to full in all directions without symptoms to promote return to baseline activities. (Progressing) Start: 06/19/23 Expected End: 07/17/23 Patient will increase strength in B LE's to 5/5 throughout to promote return to baseline activities. (Progressing) Start: 06/19/23 Expected End: 07/17/23 Gait: Patient will demonstrate no gait deviations to promote return to baseline function. (Progressing) Start: 06/19/23 Expected End: 07/17/23 Functional Outcome Measure: Patient will improve her PETER score x at least 50% to promote return to baseline activities and optimize her QOL. (Progressing) Start: 06/19/23 Expected End: 07/17/23 Plan Plan for next session: discharge patient or reassess based on patient's preference. Time Entry Total Treatment Time Start Time: 1025 Stop Time: 1100 Time Calculation (min): 35 min PT Therapeutic Procedures Time Entry Therapeutic Exercise Time Entry: 35 Alphonso Miguel, [employer] documented in this encounter [facility] 07-10-2023 History of Presen t illness Narrative Images from the original note were not included. [facility] AT [address] [place] [address] Dept: [phone] Dept PHYSICAL THERAPY TREATMENT Patient Name: Kristi Weiner : 1945 Date of Service: 07/10/2023 Referring Provider: Foster Loera MD Visit #: 7 Diagnosis: Acute left-sided low back pain with left-sided sciatica Reason for referral/Mechanism of injury: 7 weeks of L LBP and travels into the ankle/foot. Patient had radiographs. No KILO. No bowel or bladder incontinence. No pain with cough/sneeze. Pt is active as she swims, exercises at the [facility]. Pt also rides her bike in her christianity parking lot. Pt is active at her christianity. Patient Preferences: Kristi Precautions/Red Flags: None Subjective Pt states she still has some pain, but it is taking longer to return. Compliance with HEP: Yes Objective Objective measurements not taken today. Treatment Therapeutic Exercise Therapeutic Exercise Activity 4: lumbar flexion Activity 4 Comment: SKTC 10 3 ea, DKTC 10 x3, piriformis stretch 30 x2 ea, LTR x20, PPT 3 x10 Therapeutic Exercise Activity 5: strengthening Activity 5 Comment: bridge with PPT [id number] + sx, SLR x10, S/L hip ABD x10, clam 2x10 Assessment Skilled physical therapy interventions utilized to improve patient s impairments and work towards established goals. Patient response to treatment: Pt performed ex per flow sheet w/ focus on core strength and lumbar stabilization. Pt demo good chantal t/o tx, noted slight increase in radicular sx w/ bridges at end of set, held rep progressions as to not increase sx. Patient will benefit from continued physical therapy to achieve goals. The rationale for today s treatment was explained to the patient. Verbal cues were provided for correct form with all exercises. Advised patient to continue with Home Exercise Program (HEP). Goals General/Ortho Patient will be independent with HEP. (Progressing) Start: 06/19/23 Expected End: 07/17/23 Patient will report decreased pain at 0/10 and abolish all radicular symptoms and report at least a 90% return to her PLOF to optimize her QOL. (Progressing) Start: 06/19/23 Expected End: 07/17/23 Patient will increase AROM of the trunk to full in all directions without symptoms to promote return to baseline activities. (Progressing) Start: 06/19/23 Expected End: 07/17/23 Patient will increase strength in B LE's to 5/5 throughout to promote return to baseline activities. (Progressing) Start: 06/19/23 Expected End: 07/17/23 Gait: Patient will demonstrate no gait deviations to promote return to baseline function. (Progressing) Start: 06/19/23 Expected End: 07/17/23 Functional Outcome Measure: Patient will improve her PETER score x at least 50% to promote return to baseline activities and optimize her QOL. (Progressing) Start: 06/19/23 Expected End: 07/17/23 Plan Plan for next session: Progress core strengthening to pt chantal. Time Entry Total Treatment Time Start Time: 1003 Stop Time: 1027 Time Calculation (min): 24 min PT Therapeutic Procedures Time Entry Therapeutic Exercise Time Entry: 24 Soni Damian PTA documented in this encounter [facility] 07-08-2023 Note Injection procedure: Location flexor tendon of right thumb Consent: Verbal Consent Obtained-Discussed risks including hypo/hyperpigmentation, fat atrophy, steroid flare, bleeding and infection and potential consequences of over use of steroids. Prep: Betadine. Anesthesia: 2% lidocaine. Medication: 0.5 ml depomedrol 40 mg. Needle: 30 gauge 1 in. needle. Complications: No Complications, Hemostasis achieved. [facility]: [id number] LOT:[id number] [facility]: [id number] LOT: [id number] [facility] 07-05-2023 History of Presen t illness Narrative [facility] AT [address] [place] [address] Dept: [phone] Dept PHYSICAL THERAPY TREATMENT Patient Name: Kristi Weiner : 1945 Date of Service: 07/05/2023 Referring Provider: Foster Loera MD Visit #: 6 Diagnosis: Acute left-sided low back pain with left-sided sciatica Reason for referral/Mechanism of injury: 7 weeks of L LBP and travels into the ankle/foot. Patient had radiographs. No KILO. No bowel or bladder incontinence. No pain with cough/sneeze. Pt is active as she swims, exercises at the [facility]. Pt also rides her bike in her christianity parking lot. Pt is active at her christianity. Patient Preferences: Kristi Precautions/Red Flags: None Subjective Pt reported she felt so good for two days that she wanted to catch up on things she has not been able to do and over did it. 6/10 pain today. Compliance with HEP: Yes Objective Objective measurements not taken today. Treatment Therapeutic Exercise Therapeutic Exercise Activity 4: lumbar flexion Activity 4 Comment: SKTC 10 3 ea, DKTC 10 x3, piriformis stretch 30 x2 ea, LTR x20, PPT 3 x10 Therapeutic Exercise Activity 5: strengthening Activity 5 Comment: bridge with PPT x10, SLR x10, S/L hip ABD x10, clam 2x10 Assessment Skilled physical therapy interventions utilized to improve patient s impairments and work towards established goals. Patient response to treatment: Pt tolerated gentle exercise progressions well with some mild LE pain but tolerable. Pt reported improved pain after session. Patient will benefit from continued physical therapy to improve pain and activity tolerance. The rationale for today s treatment was explained to the patient. Verbal cues were provided for correct form with all exercises. Advised patient to continue with Home Exercise Program (HEP). Goals General/Ortho Patient will be independent with HEP. (Progressing) Start: 06/19/23 Expected End: 07/17/23 Patient will report decreased pain at 0/10 and abolish all radicular symptoms and report at least a 90% return to her PLOF to optimize her QOL. (Progressing) Start: 06/19/23 Expected End: 07/17/23 Patient will increase AROM of the trunk to full in all directions without symptoms to promote return to baseline activities. (Progressing) Start: 06/19/23 Expected End: 07/17/23 Patient will increase strength in B LE's to 5/5 throughout to promote return to baseline activities. (Progressing) Start: 06/19/23 Expected End: 07/17/23 Gait: Patient will demonstrate no gait deviations to promote return to baseline function. (Progressing) Start: 06/19/23 Expected End: 07/17/23 Functional Outcome Measure: Patient will improve her PETER score x at least 50% to promote return to baseline activities and optimize her QOL. (Progressing) Start: 06/19/23 Expected End: 07/17/23 Plan Plan for next session: Continue with gentle exercise progressions as tolerated. Time Entry Total Treatment Time Start Time: 932 Stop Time: 1000 Time Calculation (min): 27 min PT Therapeutic Procedures Time Entry Therapeutic Exercise Time Entry: 25 Dionicio Jackson PTA documented in this encounter [facility] 07-03-2023 History of Presen t illness Narrative [facility] AT [address] [place] [address] Dept: [phone] Dept PHYSICAL THERAPY TREATMENT Patient Name: Kristi Weiner : 1945 Date of Service: 07/03/2023 Referring Provider: Foster Loera MD Visit #: 5 Diagnosis: Acute left-sided low back pain with left-sided sciatica Reason for referral/Mechanism of injury: 7 weeks of L LBP and travels into the L ankle/foot. Patient had radiographs. No KILO. No bowel or bladder incontinence. No pain with cough/sneeze. Pt is active as she swims, exercises at the [employer]. Pt also rides her bike in her christianity parking lot. Pt is active at her christianity. Patient Preferences: Kristi Precautions/Red Flags: None Subjective Pt reported she is still having back and LE pain but it is no longer constant or as intense. Compliance with HEP: Yes Objective Objective measurements not taken today. Treatment Therapeutic Exercise # of Activities: 5 Therapeutic Exercise Activity 4: lumbar flexion Activity 4 Comment: SKTC 10 3 ea, DKTC 10 x3, piriformis stretch 30 x2 ea, LTR x20, HS stretch 30 x2 passive L LE. PPT 3 x10 Therapeutic Exercise Activity 5: strengthening Activity 5 Comment: bridge with PPT x10, SLR x10, clam 2x10 Assessment Skilled physical therapy interventions utilized to improve patient s impairments and work towards established goals. Patient response to treatment: Pt tolerated progressions well and was appropriately challenged by introduction to strengthening activity. LE symptoms are gradually improve and pt activity tolerance improving. Patient will benefit from continued physical therapy to improve pain and functional task performance. The rationale for today s treatment was explained to the patient. Verbal cues were provided for correct form with all exercises. Advised patient to continue with Home Exercise Program (HEP). Goals General/Ortho Patient will be independent with HEP. (Progressing) Start: 06/19/23 Expected End: 07/17/23 Patient will report decreased pain at 0/10 and abolish all radicular symptoms and report at least a 90% return to her PLOF to optimize her QOL. (Progressing) Start: 06/19/23 Expected End: 07/17/23 Patient will increase AROM of the trunk to full in all directions without symptoms to promote return to baseline activities. (Progressing) Start: 06/19/23 Expected End: 07/17/23 Patient will increase strength in B LE's to 5/5 throughout to promote return to baseline activities. (Progressing) Start: 06/19/23 Expected End: 07/17/23 Gait: Patient will demonstrate no gait deviations to promote return to baseline function. (Progressing) Start: 06/19/23 Expected End: 07/17/23 Functional Outcome Measure: Patient will improve her PETER score x at least 50% to promote return to baseline activities and optimize her QOL. (Progressing) Start: 06/19/23 Expected End: 07/17/23 Plan Plan for next session: Continue with flexion bias activity and gentle strengthening. Time Entry Total Treatment Time Start Time: 958 Stop Time: 1024 Time Calculation (min): 26 min PT Therapeutic Procedures Time Entry Therapeutic Exercise Time Entry: 25 Dionicio Jackson PTA documented in this encounter [facility] 06-28-2023 Miscellaneous Notes Pt called to follow up on MRI results. Informed pt of Dr. Loera's message above and she expressed understanding. Pt already has appt scheduled with Amber 08/06/2023. Pt will call back if she feels appt needs to be moved sooner. EDMUND. Left a message for Pura to return my call to relay your message. I reviewed the MRI. 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 I think the issue is in her back. I do not need to see her. Could you let her know I don't think the problem is in the ankle or foot. Thank you. Name of caller: Pura Contact phone number: [phone] Relationship to Patient: Family member Provider: Luz Maria Practice: Ortho Chief Complaint/Reason for Call: Pura would like to know if has reviewed the pt's MRI from 06/24, and what the next steps are. I did offer an appointment to go over the results, but she declined unless thinks she needs one. Please advise. Best time of day caller can be reached: Any Patient advised that office/PCP has 24-48 business hours to return their call: No documented in this encounter [facility] 06-28-2023 Telephone encounter Note Pt called to follow up on MRI results. Informed pt of Dr. Loera's message above and she expressed understanding. Pt already has appt scheduled with Amber 08/06/2023. Pt will call back if she feels appt needs to be moved sooner. EDMUND. [facility] 06-28-2023 History of Presen t illness Narrative [facility] AT [address] [place] [address] Dept: [phone] Dept PHYSICAL THERAPY TREATMENT Patient Name: Kristi Weiner : 1945 Date of Service: 06/28/2023 Referring Provider: Fosetr Loera MD Visit #: 4 Diagnosis: Acute left-sided low back pain with left-sided sciatica Reason for referral/Mechanism of injury: 7 weeks of L LBP and travels into the ankle/foot. Patient had radiographs. No KILO. No bowel or bladder incontinence. No pain with cough/sneeze. Pt is active as she swims, exercises at the [facility]. Pt also rides her bike in her christianity parking lot. Pt is active at her christianity. Patient Preferences: Kristi Precautions/Red Flags: None Subjective Pt felt some relief of pain with e-stim but pain returned shortly after. Pt reported that her ankle pain worsens with extension exercises. Compliance with HEP: Yes Objective Objective measurements not taken today. Treatment Therapeutic Exercise # of Activities: 4 Therapeutic Exercise Activity 1: JUDY 2 x 10 Therapeutic Exercise Activity 2: Prone Prop 5 min not performed Therapeutic Exercise Acitivity 3: Modified Prop press-up x10 Therapeutic Exercise Activity 4: lumbar flexion Activity 4 Comment: SKTC 10 3 ea, DKTC 10 x3, piriformis stretch 30 x3 ea, LTR x20, HS stretch 30 x2 passive L LE Assessment Skilled physical therapy interventions utilized to improve patient s impairments and work towards established goals. Patient response to treatment: Trialed flexion bias exercise and pt reported reduced LE symptoms. Advised pt to hold off on extension exercises as she reported her ankle pain worsens quickly with repeated extension and updated HEP with lumbar flexion activity. Patient will benefit from continued physical therapy to improve pain and functional task performance. The rationale for today s treatment was explained to the patient. Verbal cues were provided for correct form with all exercises. Advised patient to continue with Home Exercise Program (HEP). Goals General/Ortho Patient will be independent with HEP. (Progressing) Start: 06/19/23 Expected End: 07/17/23 Patient will report decreased pain at 0/10 and abolish all radicular symptoms and report at least a 90% return to her PLOF to optimize her QOL. (Progressing) Start: 06/19/23 Expected End: 07/17/23 Patient will increase AROM of the trunk to full in all directions without symptoms to promote return to baseline activities. (Progressing) Start: 06/19/23 Expected End: 07/17/23 Patient will increase strength in B LE's to 5/5 throughout to promote return to baseline activities. (Progressing) Start: 06/19/23 Expected End: 07/17/23 Gait: Patient will demonstrate no gait deviations to promote return to baseline function. (Progressing) Start: 06/19/23 Expected End: 07/17/23 Functional Outcome Measure: Patient will improve her PETER score x at least 50% to promote return to baseline activities and optimize her QOL. (Progressing) Start: 06/19/23 Expected End: 07/17/23 Plan Plan for next session: Assess response to flexion bias HEP. Time Entry Total Treatment Time Start Time: 1004 Stop Time: 1033 Time Calculation (min): 29 min PT Therapeutic Procedures Time Entry Therapeutic Exercise Time Entry: 25 Dionicio Jackson, FIDENCIO documented in this encounter [facility] 06-28-2023 Telephone encounter Note Left a message for Pura to return my call to relay your message. [facility] 06-27-2023 Telephone encounter Note I reviewed the MRI. 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 I think the issue is in her back. I do not need to see her. Could you let her know I don't think the problem is in the ankle or foot. Thank you. [facility] Work Phone: 06-26-2023 Telephone encounter Note Name of caller: Pura Contact phone number: [phone] Relationship to Patient: Family member Provider: Luz Maria Practice: Ortho Chief Complaint/Reason for Call: Pura would like to know if has reviewed the pt's MRI from 06/24, and what the next steps are. I did offer an appointment to go over the results, but she declined unless thinks she needs one. Please advise. Best time of day caller can be reached: Any Patient advised that office/PCP has 24-48 business hours to return their call: No [facility] 06-26-2023 History of Presen t illness Narrative Images from the original note were not included. [facility] [place] [facility] [place] [address] [place] [address] Dept: [phone] Dept PHYSICAL THERAPY TREATMENT Patient Name: Kristi Weiner : 1945 Date of Service: 06/26/2023 Referring Provider: Foster Loera MD Visit #: 3 Diagnosis: Acute left-sided low back pain with left-sided sciatica Reason for referral/Mechanism of injury: 7 weeks of L LBP and travels into the L ankle/foot. Patient had radiographs. No KILO. No bowel or bladder incontinence. No pain with cough/sneeze. Pt is active as she swims, exercises at the [employer]. Pt also rides her bike in her christianity parking lot. Pt is active at her christianity. Patient Preferences: Kristi Precautions/Red Flags: None Subjective Patient had an MRI of her L foot. L ankle/foot pain is more constant and chronic compared to the lumbar spine issues. L LE radicular symptoms are more intermittent and to the knee. L ankle/foot pain makes patient feel sick to her stomach. Overall, all pain is improving. Compliance with HEP: Yes Treatment Modalities Electrical Stimulation (parameters): IFC L ankle/foot w/ ice and pt in long sit w/ HOB elevated x 12 minutes Increased time spent discussing differential dx and cliical presentation, use of heat and ice as well as OTC orthotics and footwear. Pt may require follow-up ed. Assessment Skilled physical therapy interventions utilized to improve patient s impairments and work towards established goals. Patient response to treatment: No adverse effects. Patient initially stated she had been performing both lumbar flexion and extension activities, but after further questioning states she has only been focusing on lumbar extension activities as initially prescribed. Patient's L ankle/foot issues may not be entirely a result of L LE sciatica as symptoms appear to be different from her sciatic symptoms as well as more constant. Pt felt IFC w/ ice effective as she could walk with less pain. Patient will benefit from continued physical therapy to address concordant pain and promote safe return to baseline function. The rationale for today s treatment was explained to the patient. Verbal cues were provided for correct form with all exercises. Advised patient to continue with Home Exercise Program (HEP). Goals Plan Plan for next session: Follow-up re: effectiveness of IFC and ice. Continue with Benjamin approach for the lumbar spine and consider possible force progressions if appropriate. Time Entry Total Treatment Time Start Time: 1557 Stop Time: 5 Time Calculation (min): 28 min PT Therapeutic Procedures Time Entry Therapeutic Activity Time Entry: 12 Manual Therapy Time Entry: 12 Demetrio Queen PT documented in this encounter [facility] 06-21-2023 History of Presen t illness Narrative [facility] AT [address] [place] [address] Dept: [phone] Dept PHYSICAL THERAPY TREATMENT Patient Name: Kristi Weiner : 1945 Date of Service: 06/21/2023 Referring Provider: Foster Loera MD Visit #: 2 Diagnosis: Acute left-sided low back pain with left-sided sciatica Reason for referral/Mechanism of injury: 7 weeks of L LBP and travels into the L ankle/foot. Patient had radiographs. No KILO. No bowel or bladder incontinence. No pain with cough/sneeze. Pt is active as she swims, exercises at the [facility]. Pt also rides her bike in her christianity parking lot. Pt is active at her christianity. Patient Preferences: Kristi Precautions/Red Flags: None Subjective Pt states still experiencing L lumbar pain that radiates all the way down to L ankle. Pt reports pain of 7/10 today. Compliance with HEP: Yes Objective Objective measurements not taken today. Treatment Therapeutic Exercise Therapeutic Exercise Activity 1: JUDY 2 x 10 and pt ed on upright sitting. Therapeutic Exercise Activity 2: Prone Prop 5 min Therapeutic Exercise Acitivity 3: Modified Prop press-up 2x10 Joint Mobilization Location: Central PA mobs L5, unilateral L PA mobs at L5, L5/S1 w/ pt prone grade I-III Assessment Skilled physical therapy interventions utilized to improve patient s impairments and work towards established goals. Patient response to treatment: Pt instructed in Benjamin extension progression in order to centralize radiating pain down LLE. Pt required moderate vc for technique and proper form. FORM [employer] FORMS administered L5 mobs that alleviated pain for pt. Pt reported reduction in pain to 4/10 post tx session. Patient will benefit from continued physical therapy to reduce pain and return to PLOF The rationale for today s treatment was explained to the patient. Verbal cues were provided for correct form with all exercises. Advised patient to continue with Home Exercise Program (HEP). Goals General/Ortho Patient will be independent with HEP. (Progressing) Start: 06/19/23 Expected End: 07/17/23 Patient will report decreased pain at 0/10 and abolish all radicular symptoms and report at least a 90% return to her PLOF to optimize her QOL. (Progressing) Start: 06/19/23 Expected End: 07/17/23 Patient will increase AROM of the trunk to full in all directions without symptoms to promote return to baseline activities. (Progressing) Start: 06/19/23 Expected End: 07/17/23 Patient will increase strength in B LE's to 5/5 throughout to promote return to baseline activities. (Not Addressed) Start: 06/19/23 Expected End: 07/17/23 Gait: Patient will demonstrate no gait deviations to promote return to baseline function. (Progressing) Start: 06/19/23 Expected End: 07/17/23 Functional Outcome Measure: Patient will improve her PETER score x at least 50% to promote return to baseline activities and optimize her QOL. (Not Addressed) Start: 06/19/23 Expected End: 07/17/23 Plan Plan for next session: Continue extension based activities to reduce lumbar pain that radiates to LLE. Time Entry Total Treatment Time Start Time: 1015 Stop Time: 1050 Time Calculation (min): 35 min PT Therapeutic Procedures Time Entry Therapeutic Exercise Time Entry: 25 Manual Therapy Time Entry: 5 Richard Roman PTA documented in this encounter [facility] 06-19-2023 History of Presen t illness Narrative Images from the original note were not included. [place]NAE [place] [facility] AT [address] [place] [address] Dept: [phone] Dept PHYSICAL THERAPY EVALUATION Patient Name: Kristi Weiner : 1945 Date of Service: 06/19/2023 Referring Provider: Foster Loera MD Visit #: 1 Diagnosis: Acute left-sided low back pain with left-sided sciatica General Information Reason for referral/Mechanism of injury: 7 weeks of L LBP and travels into the L ankle/foot. Patient had radiographs. No KILO. No bowel or bladder incontinence. No pain with cough/sneeze. Pt is active as she swims, exercises at the [employer]. Pt also rides her bike in her christianity parking lot. Pt is active at her christianity. Patient Preferences: Kristi Precautions/Red Flags: None Fall Risk: No Work status: Retired Home Setup: Pt lives w/ in an apartment PMHX: Kristi has a past medical history of Hyperlipidemia. PSHX: Kristi has no past surgical history on file. Have you experienced any anxiety or depression?: No Have you experienced thoughts of self-harm or suicidal thoughts?: No Physician follow-up appointment?: No Subjective Chief Complaint: L LBP into the LE to the foot which is shooting, very bad and pt also has L LE numbness. Pain is unbearable. Patient reports that her L LE feels weak/unstable at times, but denies falls. Pain: Current: 7/10 Best: 5-6/10 Worst: 8/10 Symptoms Aggravated by: Pt unsure of a specific activity or movement but has pain with walking Symptoms Relieved by: Position changes, rest, Extra Strength Tylenol, L LE elevation Prior Level of Function: Independent Current Level of Function: Patient's and family assists patient Patient s Stated Goal: Abolish concordant symptoms, return to PLOF Outcome Measures Oswestry Low Back Disability: 39 (raw score) Objective BACK Observation: Prominent B LE veins and B LE swelling which is not new. No lateral shift. Slouched sitting posture. Gait: Antalgic at times, no device, pt ambulates modified independent Date Recorded: 06/19/23 Trunk AROM Percentage Flexion (flex) No loss Extension (ext) Mod loss w/ L LE symptoms Right side bending (SBR) No loss Left side bending (SBL) No loss Right rotation (rotR) Min loss Left rotation (rotL) Mod loss w/ pain Myotomes/LE Strength Right Left Hip Flexion (L2-L3) 5/5 5/5 Hip Abduction 5/5 4-/5 w/ pain Seated Hip Adduction 5/5 5/5 Hip Extension 3-/5 3-/5 w/ pain Knee Extension (L3-L4) 5/5 5/5 Knee Flexion (S2) 5/5 5/5 Ankle DF (L5) 5/5 5/5 Ankle PF (S1) 5/5 5/5 Joint Mobility: Central PA mobs L5, unilateral PA mobs L L5/S1, unilateral PA mobs L L5/S1 Neuro: 2+ patellar DTR's and 1+ on the L. Absent B Achilles DTR's. Negative clonus w/ rapid ankle DF. Assessment Kristi is a 78 y.o. patient with chief complaint of pain, weakness, loss of motion, sensory changes, who presents with signs and symptoms consistent with derangement og the lumbar spine with a possible extension preference. The patient would benefit from skilled physical therapy to address decreased strength, decreased range of motion, decreased endurance, impaired balance, decreased mobility, impaired sensation, pain, soft tissue impairment, impaired gait, and impaired functional activities. Evaluation complexity is moderate secondary to: patient has 1-2 personal factors and/or comorbidities that will affect plan of care, therapy will be addressing 4 or more elements, and clinical presentation is stable. Body Systems Affected: musculoskeletal and neuromuscular Rehab Potential: Good Learning Preferences: printed materials Barriers to Rehab: chronicity and severity Goals General/Ortho Patient will be independent with HEP. (Initiated) Start: 06/19/23 Expected End: 07/17/23 Patient will report decreased pain at 0/10 and abolish all radicular symptoms and report at least a 90% return to her PLOF to optimize her QOL. (Initiated) Start: 06/19/23 Expected End: 07/17/23 Patient will increase AROM of the trunk to full in all directions without symptoms to promote return to baseline activities. (Initiated) Start: 06/19/23 Expected End: 07/17/23 Patient will increase strength in B LE's to 5/5 throughout to promote return to baseline activities. (Initiated) Start: 06/19/23 Expected End: 07/17/23 Gait: Patient will demonstrate no gait deviations to promote return to baseline function. (Initiated) Start: 06/19/23 Expected End: 07/17/23 Functional Outcome Measure: Patient will improve her PETER score x at least 50% to promote return to baseline activities and optimize her QOL. (Initiated) Start: 06/19/23 Expected End: 07/17/23 Plan Frequency and Duration: 2/wk for 4 weeks Therapeutic Contents: aquatics/pool, client education, adaptive equipment education, gait training, group therapy, home exercise program, manual therapy techniques, neuromuscular re-education, self care/home management, sensory re-education/desensitization, therapeutic activities, therapeutic exercise, trigger point dry needle, splinting, orthotic fitting and training, and modalities as needed Plan for next session: Assess effectiveness of extension based activities and continue with joint mobs if warranted. Risks and benefits were discussed with the patient and/or family, and the patient and/or family participated with the plan of care and agrees. Treatment Therapeutic Exercise # of Activities: 1 Therapeutic Exercise Activity 1: JUDY 2 x 10 and pt ed on upright sitting. See HEP handout and pt demo'd understanding. Joint Mobilization Location: Central PA mobs L5, unilateral L PA mobs at L5, L5/S1 w/ pt prone grade I-III Time Entry Total Treatment Time Start Time: 1115 Stop Time: 1225 Time Calculation (min): 70 min PT Evaluation Time Entry PT Evaluation (Moderate) Time Entry: 45 PT Therapeutic Procedures Time Entry Therapeutic Exercise Time Entry: 15 Manual Therapy Time Entry: 5 Demetrio Queen PT documented in this encounter [facility] 06-11-2023 Evaluation + Plan note Associated Problem(s): Left lateral ankle pain Stop tramadol d/t side effects. Will see if lidocaine patch may help with the pain.continue acetaminophen. MRI is scheduled for 06/24/2023. Has appt with ortho on 06/19/2023. [facility] 06-11-2023 Miscellaneous Notes Associated Problem(s): Left lateral ankle pain Stop tramadol d/t side effects. Will see if lidocaine patch may help with the pain.continue acetaminophen. MRI is scheduled for 06/24/2023. Has appt with ortho on 06/19/2023. documented in this encounter [facility] 06-11-2023 Telephone encounter Note Noted. Agree with disposition. [facility] 06-11-2023 Miscellaneous Notes Noted. Agree with disposition. Thank you for the update Scheduled with Giselle berg, sending to Dr. Casillas as FYI. S: Patient spoke with [facility] nurse regarding Left ankle pain B: Onset of symptoms/concern 1 week 05/15/23 A: Patient states that the ankle pain is so severe that she is unable to sleep, is sweating through her clothes the pain is so bed. She takes 2 tylenol eases pain some. Patient toook Tramadol she was able to sleep, when she took the second dose she was soaking wet , nauseous and dizzy. Patient states that its been 5 weeks, she cannot not work and she is unable to move around well and the pain is getting worse. She is able to walk on foot walker, but mostly elevating the ankle. She states funny feeling under the left knee. She has tried Denies redness or swelling. R: Patient unsure is she should go to ER due to the amount of pain she is in, offered patient and appointment. Patient agreeable, appointment scheduled, address given to the patient, instructed to bring photo ID, insurance info and medication list to the appointment. Patient understands care advice. No further needs at this time. Patient instructed to call back with new or worsening symptoms. Reason for Disposition SEVERE pain (e.g., excruciating, unable to walk) and not improved after 2 hours of pain medicine Protocols used: Ankle [id number] documented in this encounter [facility] 06-11-2023 History of Presen t illness Narrative Patient was identified by name and Date of . Images from the original note were not included. 06/11/2023 Kristi Weiner (: 1945) is a 78 y.o. female , Established patient, here for evaluation of the following chief complaint(s): Ankle Pain, Back Pain (Intermediate ), Foot Pain, Medication Reaction (Tramadol-just sent in on 06/10/23), Dizziness, Dry Mouth, and Shaking ASSESSMENT/PLAN: 1. Left lateral ankle pain Assessment & Plan: Stop tramadol d/t side effects. Will see if lidocaine patch may help with the pain.continue acetaminophen. MRI is scheduled for 06/24/2023. Has appt with ortho on 06/19/2023. Orders: - lidocaine (Lidoderm) 5 % patch; Apply 1 patch topically daily. Remove & discard patch within 12 hours or as directed by ., Starting 06/11/2023, Normal Follow up for with specialist. SUBJECTIVE/OBJECTIVE: HPI - Kristi Weiner (: 1945) is a 78 y.o. female , Established patient, here for the evaluation of the following chief complaint(s): Ankle Pain, Back Pain (Intermediate ), Foot Pain, Medication Reaction (Tramadol-just sent in on 06/10/23), Dizziness, Dry Mouth, and Shaking Presents for ongoing left ankle pain/foot pain of unknown etiology. No known injury. Has been worsening over the past 5 weeks or so. Xray of foot unremarkable. Pain is on the lateral side of the ankle and radiates upwards to mid kimble. Has intermittent low back pain and left sided sciatic pain-however states that it only hurts on the lateral side of the foot/ankle now and does NOT have any back or pain radiating down the left leg. No change in bowel or bladder. No significant swelling. Has tried acetaminophen, meloxicam without relief. Has been referred to orthopedic Dr. Loera and will see him on 06/19/2023. MRI of the ankle is not scheduled yet (ordered by Dr. Casillas). She was given prescription for tramadol for pain yesterday, however it made her nauseated and not feel well. Last dose was last night- she stopped taking the medication. -worse with ambulation -hurts all the time -skin is very sensitive to touch over the lateral aspect of the foot. -no numbness Prior to Admission medications Medication Sig Start Date End Date Taking? Authorizing Provider alpha tocopherol (Vitamin E) 400 units capsule Take 400 Units by mouth. Yes Historical Provider, atorvastatin (Lipitor) 10 MG tablet TAKE 1 TABLET BY MOUTH IN THE MORNING 04/29/23 Yes Minnie Lopez APRN - KAY B Complex Vitamins (B COMPLEX PO) Take by mouth. Yes Historical Provider, Calcium Carb-Cholecalciferol (CALCIUM 1000 + D PO) Take by mouth. Yes Historical Provider, cholecalciferol (Vitamin D-3) 25 MCG (1000 UT) capsule Take by mouth. Yes Historical Provider, COD LIVER OIL/VITAMINS A & D PO Take by mouth. Yes Historical Provider, coenzyme Q-10 50 MG capsule Take by mouth. Yes Historical Provider, cyanocobalamin (Vitamin B-12) 1000 MCG tablet Take 1,000 mcg by mouth daily. Yes Historical Provider, Ferrous Sulfate Dried (High Potency Iron) 65 MG tablet Take by mouth. Yes Historical Provider, furosemide (Lasix) 40 MG tablet Take 40 mg by mouth daily. Yes Historical Provider, ketoconazole (NIZOral) 2 % shampoo WASH THE SCALP ONCE WEEKLY, LET SIT 5-10 MINUTES BEFORE RINSING OUT 07/07/22 Yes Historical Provider, magnesium gluconate (Magonate) 500 MG tablet Take 500 mg by mouth. Yes Historical Provider, meloxicam (Mobic) 15 MG tablet Take 0.5 tablets (7.5 mg) by mouth 2 times daily. 06/03/23 Yes Ronald Casillas MD Multiple Vitamins-Minerals (Hair Skin and Nails Formula) tablet Take by mouth. Yes Historical ProviderMD Multiple Vitamins-Minerals (PreserVision AREDS 2) capsule Take by mouth. Yes Historical Provider, traMADol (Ultram) 50 MG tablet Take 1 tablet (50 mg) by mouth every 6 hours as needed for severe pain (7-10) for up to 7 days. 06/10/23 06/17/23 Yes oRnald Casillas MD Review of Systems Constitutional: Negative for activity change, appetite change, diaphoresis, fatigue and fever. Respiratory: Negative. Cardiovascular: Negative. Gastrointestinal: Positive for nausea (improving). Negative for abdominal pain and vomiting. Musculoskeletal: Positive for back pain (intermittent) and gait problem. Negative for joint swelling. Neurological: Positive for dizziness (improving after stopping tramadol). Negative for weakness and light-headedness. Vitals: 06/11/23 1017 BP: 118/72 Pulse: 89 Resp: 24 Temp: 36.6 C (97.8 F) TempSrc: Infrared SpO2: 98% Physical Exam Constitutional: General: She is not in acute distress. Appearance: Normal appearance. She is not ill-appearing. HENT: Head: Normocephalic and atraumatic. Pulmonary: Effort: Pulmonary effort is normal. Musculoskeletal: Left ankle: No deformity or ecchymosis. Tenderness present. Normal range of motion. Anterior drawer test negative. Normal pulse. Comments: No edema noted. No erythema, tenderness over lateral aspect of ankle, lower leg. Pain increases some with dorsiflexion. Minimal increase with plantarflexion. Pain with light touch over the area. Skin: General: Skin is warm and dry. Neurological: Mental Status: She is alert and oriented to person, place, and time. An electronic signature was used to authenticate this note. KENNY Chin CNP 06/11/2023 4:06 PM documented in this encounter [facility] 06-11-2023 Telephone encounter Note Thank you for the update [facility] 06-11-2023 Telephone encounter Note Scheduled with Giselle berg, sending to Dr. Casillas as FYI. [facility] 06-11-2023 Telephone encounter Note S: Patient spoke with [facility] nurse regarding Left ankle pain B: Onset of symptoms/concern 1 week 05/15/23 A: Patient states that the ankle pain is so severe that she is unable to sleep, is sweating through her clothes the pain is so bed. She takes 2 tylenol eases pain some. Patient toook Tramadol she was able to sleep, when she took the second dose she was soaking wet , nauseous and dizzy. Patient states that its been 5 weeks, she cannot not work and she is unable to move around well and the pain is getting worse. She is able to walk on foot walker, but mostly elevating the ankle. She states funny feeling under the left knee. She has tried Denies redness or swelling. R: Patient unsure is she should go to ER due to the amount of pain she is in, offered patient and appointment. Patient agreeable, appointment scheduled, address given to the patient, instructed to bring photo ID, insurance info and medication list to the appointment. Patient understands care advice. No further needs at this time. Patient instructed to call back with new or worsening symptoms. Reason for Disposition SEVERE pain (e.g., excruciating, unable to walk) and not improved after 2 hours of pain medicine Protocols used: Ankle [id number] [facility] 06-10-2023 Note Ronald Casillas MD 9 minutes ago (3:51 PM) DW According to our outpatient program coordinator the MRI is still being reviewed so it has not been denied and and so far there has been no recommendation for 6 weeks of physical therapy according to our outpatient program coordinator. We do not want to reorder it as a stat or otherwise it we will start the process all over again, once it has been approved then we can request that it be done SPENSER and usually it does not take long to schedule an MRI and get it done and get the results back. Once insurance has approved it. She is scheduled to see Dr. Loera next week on the sixth, this is actually very quickly getting her in. I sent in a prescription for a mild narcotic tramadol, she can take this every 6 hours along with a Tylenol, this is a controlled substance so it cannot be refilled unless she is seen by a chronic pain specialist. Left a message to return call. [facility] 06-10-2023 Note According to our ref erral coordinator the MRI is still being reviewed so it has not been denied and and so far there has been no recommendation for 6 weeks of physical therapy according to our outpatient program coordinator. We do not want to reorder it as a stat or otherwise it we will start the process all over again, once it has been approved then we can request that it be done SPENSER and usually it does not take long to schedule an MRI and get it done and get the results back. Once insurance has approved it. She is scheduled to see Dr. Loera next week on the sixth, this is actually very quickly getting her in. I sent in a prescription for a mild narcotic tramadol, she can take this every 6 hours along with a Tylenol, this is a controlled substance so it cannot be refilled unless she is seen by a chronic pain specialist. [facility] 06-10-2023 Telephone encounter Note Message released to patient as written: Amber Husain MA SD 06/10/23 4:01 PM Note Ronald Casillas MD 9 minutes ago (3:51 PM) DW According to our outpatient program coordinator the MRI is still being reviewed so it has not been denied and and so far there has been no recommendation for 6 weeks of physical therapy according to our outpatient program coordinator. We do not want to reorder it as a stat or otherwise it we will start the process all over again, once it has been approved then we can request that it be done SPENSER and usually it does not take long to schedule an MRI and get it done and get the results back. Once insurance has approved it. She is scheduled to see Dr. Loera next week on the sixth, this is actually very quickly getting her in. I sent in a prescription for a mild narcotic tramadol, she can take this every 6 hours along with a Tylenol, this is a controlled substance so it cannot be refilled unless she is seen by a chronic pain specialist. Further questions if applicable: None. Granddaughter will pick up attendant prescription. She fully understood above explanation. Were all questions from office addressed or relayed to the patient from encounter: Yes [facility] 06-10-2023 Miscellaneous Notes Message released to patient as written: Amber Husain MA SD 06/10/23 4:01 PM Note Ronald Casillas MD 9 minutes ago (3:51 PM) DW According to our outpatient program coordinator the MRI is still being reviewed so it has not been denied and and so far there has been no recommendation for 6 weeks of physical therapy according to our outpatient program coordinator. We do not want to reorder it as a stat or otherwise it we will start the process all over again, once it has been approved then we can request that it be done SPENSER and usually it does not take long to schedule an MRI and get it done and get the results back. Once insurance has approved it. She is scheduled to see Dr. Loera next week on the sixth, this is actually very quickly getting her in. I sent in a prescription for a mild narcotic tramadol, she can take this every 6 hours along with a Tylenol, this is a controlled substance so it cannot be refilled unless she is seen by a chronic pain specialist. Further questions if applicable: None. Granddaughter will pick up attendant prescription. She fully understood above explanation. Were all questions from office addressed or relayed to the patient from encounter: Yes Ronald Casillas MD 9 minutes ago (3:51 PM) DW According to our outpatient program coordinator the MRI is still being reviewed so it has not been denied and and so far there has been no recommendation for 6 weeks of physical therapy according to our outpatient program coordinator. We do not want to reorder it as a stat or otherwise it we will start the process all over again, once it has been approved then we can request that it be done SPENSER and usually it does not take long to schedule an MRI and get it done and get the results back. Once insurance has approved it. She is scheduled to see Dr. Loera next week on the sixth, this is actually very quickly getting her in. I sent in a prescription for a mild narcotic tramadol, she can take this every 6 hours along with a Tylenol, this is a controlled substance so it cannot be refilled unless she is seen by a chronic pain specialist. Left a message to return call. According to our outpatient program coordinator the MRI is still being reviewed so it has not been denied and and so far there has been no recommendation for 6 weeks of physical therapy according to our outpatient program coordinator. We do not want to reorder it as a stat or otherwise it we will start the process all over again, once it has been approved then we can request that it be done SPENSER and usually it does not take long to schedule an MRI and get it done and get the results back. Once insurance has approved it. She is scheduled to see Dr. Loera next week on the sixth, this is actually very quickly getting her in. I sent in a prescription for a mild narcotic tramadol, she can take this every 6 hours along with a Tylenol, this is a controlled substance so it cannot be refilled unless she is seen by a chronic pain specialist. Name of caller: Adrienne Contact phone number: [phone] Relationship to Patient: family member patient and grand daughter Provider: Sonja Practice: [facility] Chief Complaint/Reason for Call: grand daughter of patient called and asked 2 things 1 could you change orders to stat for her testing so they can get results sooner . 2. Can you give her a rx for pain meds the 2 Extra strength Tylenol and meloxicam are not helping at all . Best time of day caller can be reached: any Patient advised that office/PCP has 24-48 business hours to return their call: yes documented in this encounter [facility] 06-10-2023 Telephone encounter Note Ronald Casillas MD 9 minutes ago (3:51 PM) DW According to our outpatient program coordinator the MRI is still being reviewed so it has not been denied and and so far there has been no recommendation for 6 weeks of physical therapy according to our outpatient program coordinator. We do not want to reorder it as a stat or otherwise it we will start the process all over again, once it has been approved then we can request that it be done SPENSER and usually it does not take long to schedule an MRI and get it done and get the results back. Once insurance has approved it. She is scheduled to see Dr. Loera next week on the sixth, this is actually very quickly getting her in. I sent in a prescription for a mild narcotic tramadol, she can take this every 6 hours along with a Tylenol, this is a controlled substance so it cannot be refilled unless she is seen by a chronic pain specialist. Left a message to return call. [facility] 06-10-2023 Telephone encounter Note According to our outpatient program coordinator the MRI is still being reviewed so it has not been denied and and so far there has been no recommendation for 6 weeks of physical therapy according to our outpatient program coordinator. We do not want to reorder it as a stat or otherwise it we will start the process all over again, once it has been approved then we can request that it be done SPENSER and usually it does not take long to schedule an MRI and get it done and get the results back. Once insurance has approved it. She is scheduled to see Dr. Loera next week on the sixth, this is actually very quickly getting her in. I sent in a prescription for a mild narcotic tramadol, she can take this every 6 hours along with a Tylenol, this is a controlled substance so it cannot be refilled unless she is seen by a chronic pain specialist. [facility] 06-10-2023 Telephone encounter Note Thank you for the update [facility] 06-10-2023 Miscellaneous Notes Thank you for the update Pt's MRI is still pending with ins. I am unsure who they talked to that told them it was denied and pt needed 6 wks conservative treatment. As of today it is still in physician's review . We can not sched a peer to peer until a denial is made. Pt is also sched with Dr Loera on 06/19/23 Thank you very much for your assistance Spoke to Dr. Loera's office and clarified that the patient needs seen SPENSER, they are going to call the patient. Attaching [facility], are you able you set up a peer to peer for Dr. Casillas to get the MRI approved? I did not put in the referral to Dr. Loera to be done after her MRI, I was hoping her MRI could be done before he sees her however I wanted her scheduled as soon as possible with him and if it was before the MRI was done that is okay. I do not know where that came from that it was to be after the MRI. Please schedule her with Dr. Recinos to be seen SPENSER this lady is in pain and needs to be seen and if they can get an MRI ordered sooner than I can so be it. Also if we can contact the insurance company that I can talk to them to see if I can get the MRI ordered sooner I will do that. Name of caller: Kristi Contact phone number: [phone] (granddaughter, Jane) Relationship to Patient: patient Provider: Sonja Practice: [facility] Chief Complaint/Reason for Call: Pt is calling requesting office to call her granddaughter, Jane (pt does not speak Stateless very well) regarding her MRI. Insurance is requesting she complete 6 weeks of therapy/evaluation before they approve and she is in horrible pain, having constipation from the medication and is suffering from loss of appetite. Pt had called to make an appointment with Dr. Loera in Orthopedics as referred by Dr. Casillas, but the referral is for her to be seen after the MRI is completed. Dr. Loera's staff advised that patient should contact PCP office and have them discuss with insurance to see if can get MRI approved and then schedule with Orthopedics or change referral for patient to be seen without MRI being completed first. Please call patient granddaughter, Jane, to discuss at number listed so she can assist grandmother in handling (Can try to call patient at number in chart as well if needed). If she needs an appointment with Dr. Casillas sooner, that is fine as well. Best time of day caller can be reached: Any Patient advised that office/PCP has 24-48 business hours to return their call: No Name of caller: Glenna Contact phone number: [phone] Relationship to Patient: Elissa Provider: Practice: [facility] Chief Complaint/Reason for Call: Caller is needing 6 wk treatment and evaluation for MR ankle left wo contrast (Order #[id number]) on 06/03/23 which is currently pending please advise Best time of day caller can be reached: any Patient advised that office/PCP has 24-48 business hours to return their call: No documented in this encounter [facility] 06-10-2023 Telephone encounter Note Pt's MRI is still pending with ins. I am unsure who they talked to that told them it was denied and pt needed 6 wks conservative treatment. As of today it is still in physician's review . We can not sched a peer to peer until a denial is made. Pt is also sched with Dr Loera on 06/19/23 [facility] 06-10-2023 Telephone encounter Note Name of caller: Adrienne Contact phone number: [phone] Relationship to Patient: family member patient and grand daughter Provider: Sonja Practice: [facility] Chief Complaint/Reason for Call: grand daughter of patient called and asked 2 things 1 could you change orders to stat for her testing so they can get results sooner . 2. Can you give her a rx for pain meds the 2 Extra strength Tylenol and meloxicam are not helping at all . Best time of day caller can be reached: any Patient advised that office/PCP has 24-48 business hours to return their call: yes [facility] 06-10-2023 Note Please advise, I see your referral note states that, but I do not see it anywhere else that she needed the MRI scheduled prior to seeing Dr. Loera. Dr. Casillas wants her to see Dr. Luz Maria DUEÑAS. Thanks! [facility] 06-10-2023 Note I never put the refe rral in to be done after her MRI. I put it to be done so that she can be scheduled as soon as possible please get her scheduled. I do not know who put in that, and that it was to be scheduled after her MRI. Can we see where that came from? [facility] 06-10-2023 Note I did not put in the referral to Dr. Loera to be done after her MRI, I was hoping her MRI could be done before he sees her however I wanted her scheduled as soon as possible with him and if it was before the MRI was done that is okay. I do not know where that came from that it was to be after the MRI. Please schedule her with Dr. Recinos to be seen SPENSER this lady is in pain and needs to be seen and if they can get an MRI ordered sooner than I can so be it. Also if we can contact the insurance company that I can talk to them to see if I can get the MRI ordered sooner I will do that. [facility] 06-10-2023 Telephone encounter Note Thank you very much for your assistance [facility] 06-10-2023 Telephone encounter Note Spoke to Dr. Loera's office and clarified that the patient needs seen SPENSER, they are going to call the patient. Attaching [facility], are you able you set up a peer to peer for Dr. Casillas to get the MRI approved? [facility] 06-10-2023 Telephone encounter Note I did not put in the referral to Dr. Loera to be done after her MRI, I was hoping her MRI could be done before he sees her however I wanted her scheduled as soon as possible with him and if it was before the MRI was done that is okay. I do not know where that came from that it was to be after the MRI. Please schedule her with Dr. Recinos to be seen SPENSER this lady is in pain and needs to be seen and if they can get an MRI ordered sooner than I can so be it. Also if we can contact the insurance company that I can talk to them to see if I can get the MRI ordered sooner I will do that. [facility] 06-07-2023 Telephone encounter Note Name of caller: Kristi Contact phone number: [phone] (granddaughter, Jane) Relationship to Patient: patient Provider: Sonja Practice: [facility] Chief Complaint/Reason for Call: Pt is calling requesting office to call her granddaughter, Jane (pt does not speak [employer] very well) regarding her MRI. Insurance is requesting she complete 6 weeks of therapy/evaluation before they approve and she is in horrible pain, having constipation from the medication and is suffering from loss of appetite. Pt had called to make an appointment with Dr. Loera in Orthopedics as referred by Dr. Casillas, but the referral is for her to be seen after the MRI is completed. Dr. Loera's staff advised that patient should contact PCP office and have them discuss with insurance to see if can get MRI approved and then schedule with Orthopedics or change referral for patient to be seen without MRI being completed first. Please call patient granddaughter, Jane, to discuss at number listed so she can assist grandmother in handling (Can try to call patient at number in chart as well if needed). If she needs an appointment with Dr. Casillas sooner, that is fine as well. Best time of day caller can be reached: Any Patient advised that office/PCP has 24-48 business hours to return their call: No [facility] 06-07-2023 Telephone encounter Note Name of caller: Glenna Contact phone number: [phone] Relationship to Patient: Elissa Provider: Practice: [facility] Chief Complaint/Reason for Call: Caller is needing 6 wk treatment and evaluation for MR ankle left wo contrast (Order #[id number]) on 06/03/23 which is currently pending please advise Best time of day caller can be reached: any Patient advised that office/PCP has 24-48 business hours to return their call: No [facility] 06-06-2023 Note Kristi should be seen by Dr. Loera for her left foot and ankle pain, per Dr. Casillas's referral. Dr. Casillas ordered an MRI to be completed, and Kristi can schedule with Dr. Loera once MRI is scheduled. Patient can be seen by Dr. Loera in [place] on 06/28 at 1:30 or 2:30, or at another office sooner if there is availability. [facility] 06-03-2023 Evaluation + Plan note Associated Problem(s): Left foot pain Patient continues to have pain along the lateral aspect of the ankle, x-rays were negative, she did not get much relief with ibuprofen and Tylenol so we will start her on meloxicam 7.5 mg twice a day schedule her for an MRI and refer her to Dr. Loera [facility] 06-03-2023 Miscellaneous Notes Associated Problem(s): Left foot pain Patient continues to have pain along the lateral aspect of the ankle, x-rays were negative, she did not get much relief with ibuprofen and Tylenol so we will start her on meloxicam 7.5 mg twice a day schedule her for an MRI and refer her to Dr. Loera Associated Problem(s): Left ankle pain Patient continues to have pain along the lateral aspect of the ankle, x-rays were negative, she did not get much relief with ibuprofen and Tylenol so we will start her on meloxicam 7.5 mg twice a day schedule her for an MRI and refer her to Dr. Loera documented in this encounter [facility] 06-03-2023 Miscellaneous Notes Associated Problem(s): Left foot pain Patient continues to have pain along the lateral aspect of the ankle, x-rays were negative, she did not get much relief with ibuprofen and Tylenol so we will start her on meloxicam 7.5 mg twice a day schedule her for an MRI and refer her to Dr. Loera Associated Problem(s): Left ankle pain Patient continues to have pain along the lateral aspect of the ankle, x-rays were negative, she did not get much relief with ibuprofen and Tylenol so we will start her on meloxicam 7.5 mg twice a day schedule her for an MRI and refer her to Dr. Loera Addended by: RONALD CASILLAS on: 06/05/2023 09:15 AM Modules accepted: Level of Service documented in this encounter [facility] 06-03-2023 Evaluation + Plan note Associated Problem(s): Left ankle pain Patient continues to have pain along the lateral aspect of the ankle, x-rays were negative, she did not get much relief with ibuprofen and Tylenol so we will start her on meloxicam 7.5 mg twice a day schedule her for an MRI and refer her to Dr. Loera [facility] 06-03-2023 History of Presen t illness Narrative Patient verified by last name and date of . Images from the original note were not included. 06/03/2023 Kristi Weiner (: 1945) is a 78 y.o. female , Established patient, here for evaluation of the following chief complaint(s): Leg Pain (Left so painful it is very hard to walk ) ASSESSMENT/PLAN: 1. Acute left ankle pain Assessment & Plan: Patient continues to have pain along the lateral aspect of the ankle, x-rays were negative, she did not get much relief with ibuprofen and Tylenol so we will start her on meloxicam 7.5 mg twice a day schedule her for an MRI and refer her to Dr. Loera Orders: - MR ankle left wo contrast - [facility] Orthopedics [facility] 2. Left foot pain Assessment & Plan: Patient continues to have pain along the lateral aspect of the ankle, x-rays were negative, she did not get much relief with ibuprofen and Tylenol so we will start her on meloxicam 7.5 mg twice a day schedule her for an MRI and refer her to Dr. Loera Orders: - MR ankle left wo contrast - [facility] Orthopedics - [facility] Follow up after mri and referral. SUBJECTIVE/OBJECTIVE: HPI Sam comes in today again for follow-up on her pain in her left foot and ankle. She says this all started after she was doing some stretching exercises and felt something pull or pop in her left ankle. She denies any pain in her back or down radiating down the back of her leg. She does get pain all the way up her anterior calf at times when she has been walking on her foot. X-rays were negative, she did not get her Medrol Dosepak filled because her [id number] told her that it would hurt her bones. She says she has been using some ibuprofen and some Tylenol without significant pain relief. Review of Systems Musculoskeletal: Positive for arthralgias and gait problem. Negative for joint swelling and myalgias. Neurological: Negative for weakness and numbness. Vitals: 06/03/23 0655 BP: 120/75 Pulse: 101 SpO2: 98% Weight: 137 lb 6.4 oz (62.3 kg) Height: 5' 1 (1.549 m) Physical Exam Vitals and nursing note reviewed. Constitutional: General: She is not in acute distress. Appearance: Normal appearance. Musculoskeletal: Comments: Left ankle with no significant swelling, she does have significant tenderness to palpation around and below the lateral malleolus. She has pain with resistance of plantarflexion but not dorsiflexion. She has pain with stressing of the lateral ligaments on the ankle but not the medial. She has pain with resistance of lateral flexion of the foot and some pain with medial flexion. Neurological: Mental Status: She is alert. An electronic signature was used to authenticate this note. Ronald Casillas MD 06/03/2023 7:41 AM documented in this encounter [facility] 06-03-2023 History of Presen t illness Narrative Patient verified by last name and date of . Images from the original note were not included. 06/03/2023 Kristi Weiner (: 1945) is a 78 y.o. female , Established patient, here for evaluation of the following chief complaint(s): Leg Pain (Left so painful it is very hard to walk ) ASSESSMENT/PLAN: 1. Acute left ankle pain Assessment & Plan: Patient continues to have pain along the lateral aspect of the ankle, x-rays were negative, she did not get much relief with ibuprofen and Tylenol so we will start her on meloxicam 7.5 mg twice a day schedule her for an MRI and refer her to Dr. Loera Orders: - MR ankle left wo contrast - [facility] 2. Left foot pain Assessment & Plan: Patient continues to have pain along the lateral aspect of the ankle, x-rays were negative, she did not get much relief with ibuprofen and Tylenol so we will start her on meloxicam 7.5 mg twice a day schedule her for an MRI and refer her to Dr. Loera Orders: - MR ankle left wo contrast - [facility] Follow up after mri and referral. SUBJECTIVE/OBJECTIVE: HPI -Kristi comes in today again for follow-up on her pain in her left foot and ankle. She says this all started after she was doing some stretching exercises and felt something pull or pop in her left ankle. She denies any pain in her back or down radiating down the back of her leg. She does get pain all the way up her anterior calf at times when she has been walking on her foot. X-rays were negative, she did not get her Medrol Dosepak filled because her axzfyndl-[id number]-yjs told her that it would hurt her bones. She says she has been using some ibuprofen and some Tylenol without significant pain relief. Review of Systems Musculoskeletal: Positive for arthralgias and gait problem. Negative for joint swelling and myalgias. Neurological: Negative for weakness and numbness. Vitals: 06/03/23 0655 BP: 120/75 Pulse: 101 SpO2: 98% Weight: 137 lb 6.4 oz (62.3 kg) Height: 5' 1 (1.549 m) Physical Exam Vitals and nursing note reviewed. Constitutional: General: She is not in acute distress. Appearance: Normal appearance. Musculoskeletal: Comments: Left ankle with no significant swelling, she does have significant tenderness to palpation around and below the lateral malleolus. She has pain with resistance of plantarflexion but not dorsiflexion. She has pain with stressing of the lateral ligaments on the ankle but not the medial. She has pain with resistance of lateral flexion of the foot and some pain with medial flexion. Neurological: Mental Status: She is alert. An electronic signature was used to authenticate this note. Ronald Casillas MD 06/05/2023 9:15 AM documented in this encounter [facility] 06-03-2023 Note Addended by: RONALD CASILLAS on: 06/05/2023 09:15 AM Modules accepted: Level of Service [facility] 05-22-2023 Evaluation + Plan note Associated Problem(s): Sciatic pain, left No change in bowel or bladder. Will see if medrol dose clarence will provide some relief of symptoms. If worsens or fails to improve, would recommend physical therapy [facility] 05-22-2023 Miscellaneous Notes Associated Problem(s): Sciatic pain, left No change in bowel or bladder. Will see if medrol dose clarence will provide some relief of symptoms. If worsens or fails to improve, would recommend physical therapy Associated Problem(s): Left foot pain Xray negative for fracture. No redness or signs of infection, pain increased with seated straight leg testing but reports symptoms present ? only on left buttock, left posterior thigh and left foot Suspect secondary to sciatica. Will treat with short course of steroids. Gentle stretching at home follow-up if worsening or failure for symptoms to improve documented in this encounter [facility] 05-22-2023 Evaluation + Plan note Associated Problem(s): Left foot pain Xray negative for fracture. No redness or signs of infection, pain increased with seated straight leg testing but reports symptoms present ? only on left buttock, left posterior thigh and left foot Suspect secondary to sciatica. Will treat with short course of steroids. Gentle stretching at home follow-up if worsening or failure for symptoms to improve [facility] 05-22-2023 History of Presen t illness Narrative Images from the original note were not included. 05/22/2023 Kristi Weiner (: 1945) is a 78 y.o. female , Established patient, here for evaluation of the following chief complaint(s): Ankle Pain (Left ankle) ASSESSMENT/PLAN: 1. Sciatic pain, left Assessment & Plan: No change in bowel or bladder. Will see if medrol dose clarence will provide some relief of symptoms. If worsens or fails to improve, would recommend physical therapy Orders: - methylPREDNISolone (Medrol Dospak) 4 MG tablets; Take as directed on package., Normal 2. Left foot pain Assessment & Plan: Xray negative for fracture. No redness or signs of infection, pain increased with seated straight leg testing but reports symptoms present ? only on left buttock, left posterior thigh and left foot Suspect secondary to sciatica. Will treat with short course of steroids. Gentle stretching at home follow-up if worsening or failure for symptoms to improve Follow up if symptoms worsen or fail to improve. SUBJECTIVE/OBJECTIVE: HPI - Kristi Weiner (: 1945) is a 78 y.o. female , Established patient, here for the evaluation of the following chief complaint(s): Ankle Pain (Left ankle) Left ankle pain, xr 05/20/2023- No acute fracture or dislocation. Posterior and plantar calcaneal enthesophytes. No soft tissue abnormality. Patient concerned she may have a fracture that was missed on the x-ray, she does state that the pain initially started after she was having some pain in her lower left back which has improved some, still has left buttock pain radiating into the thigh and then into the left foot. No increased swelling or redness. No numbness or tingling, no weakness. Pain is worse with walking, and sitting a certain way will make it radiate to the foot. Prior to Admission medications Medication Sig Start Date End Date Taking? Authorizing Provider alpha tocopherol (Vitamin E) 400 units capsule Take 400 Units by mouth. Historical Provider, atorvastatin (Lipitor) 10 MG tablet TAKE 1 TABLET BY MOUTH IN THE MORNING 04/29/23 Minnie Lopez DRUM CARRIER - FLOOR RENOVATOR B Complex Vitamins (B COMPLEX PO) Take by mouth. Historical Provider, Calcium Carb-Cholecalciferol (CALCIUM 1000 + D PO) Take by mouth. Historical ProviderMD cholecalciferol (Vitamin D-3) 25 MCG (1000 UT) capsule Take by mouth. Historical Provider, COD LIVER OIL/VITAMINS A & D PO Take by mouth. Historical ProviderMD coenzyme Q-10 50 MG capsule Take by mouth. Historical ProviderMD cyanocobalamin (Vitamin B-12) 1000 MCG tablet Take 1,000 mcg by mouth daily. Historical Provider, Ferrous Sulfate Dried (High Potency Iron) 65 MG tablet Take by mouth. Historical ProviderMD ketoconazole (NIZOral) 2 % shampoo WASH THE SCALP ONCE WEEKLY, LET SIT 5-10 MINUTES BEFORE RINSING OUT 07/07/22 Historical ProviderMD magnesium gluconate (Magonate) 500 MG tablet Take 500 mg by mouth. Historical ProviderMD Multiple Vitamins-Minerals (Hair Skin and Nails Formula) tablet Take by mouth. Historical ProviderMD Multiple Vitamins-Minerals (PreserVision AREDS 2) capsule Take by mouth. Historical ProviderMD Review of Systems Constitutional: Negative. Respiratory: Negative. Cardiovascular: Negative. Vitals: 05/22/23 1349 BP: 132/80 Pulse: 80 Resp: 20 Temp: 36.9 C (98.4 F) TempSrc: Oral SpO2: 99% Weight: 142 lb (64.4 kg) Physical Exam Constitutional: General: She is not in acute distress. Appearance: Normal appearance. She is not ill-appearing. Cardiovascular: Rate and Rhythm: Normal rate and regular rhythm. Pulses: Normal pulses. Heart sounds: Normal heart sounds. Pulmonary: Effort: Pulmonary effort is normal. Breath sounds: Normal breath sounds. Musculoskeletal: Lumbar back: No bony tenderness. Normal range of motion. Positive left straight leg raise test. Negative right straight leg raise test. No scoliosis. Back: Right lower leg: No edema. Left lower leg: No edema. Legs: Comments: Reported area of pain with seated straight leg on the left DTR's intact, no weakness of lower extremities. Skin: General: Skin is warm and dry. Neurological: Mental Status: She is alert and oriented to person, place, and time. An electronic signature was used to authenticate this note. KENNY Chin CNP 05/22/2023 4:37 PM documented in this encounter [facility] 05-20-2023 Telephone encounter Note Patient notified [facility] 05-20-2023 Miscellaneous Notes Patient notified ----- Message from Ronald Casillas MD sent at 05/19/2023 3:21 PM EDT ----- X-ray of the left ankle shows no acute process no fractures she does have some heel spurs but that would not be causing her pain. Left a message to return call. documented in this encounter [facility] 05-20-2023 Telephone encounter Note ----- Message from Ronald Casillas MD sent at 05/19/2023 3:21 PM EDT ----- X-ray of the left ankle shows no acute process no fractures she does have some heel spurs but that would not be causing her pain. Left a message to return call. [facility] 05-14-2023 Note Injection procedure: Location flexor tendon of right thumb Consent: Verbal Consent Obtained-Discussed risks including hypo/hyperpigmentation, fat atrophy, steroid flare, bleeding and infection and potential consequences of over use of steroids. Prep: Betadine. Anesthesia: 2% lidocaine. Medication: 1 ml depomedrol 40 mg. Needle: 25 gauge 1.5 in. needle. Complications: No Complications, Hemostasis achieved. ND: 2310-7723-77 LOT:[id number] [facility]: 70793-597-25 LOT: [id number] [facility] 05-14-2023 Evaluation + Plan note Associated Problem(s): Trigger finger of right thumb Injection procedure: Location flexor tendon of right thumb Consent: Verbal Consent Obtained-Discussed risks including hypo/hyperpigmentation, fat atrophy, steroid flare, bleeding and infection and potential consequences of over use of steroids. Prep: Betadine. Anesthesia: 2% lidocaine. Medication: 1 ml depomedrol 40 mg. Needle: 25 gauge 1.5 in. needle. Complications: No Complications, Hemostasis achieved. NDC: 5879-9955-83 LOT:[id number] [place]: 98410-530-32 LOT: [id number] [facility] 05-14-2023 Miscellaneous Notes Associated Problem(s): Trigger finger of right thumb Injection procedure: Location flexor tendon of right thumb Consent: Verbal Consent Obtained-Discussed risks including hypo/hyperpigmentation, fat atrophy, steroid flare, bleeding and infection and potential consequences of over use of steroids. Prep: Betadine. Anesthesia: 2% lidocaine. Medication: 1 ml depomedrol 40 mg. Needle: 25 gauge 1.5 in. needle. Complications: No Complications, Hemostasis achieved. NDC: 6852-7995-71 LOT:[id number] [place]: 04141-774-84 LOT: [id number] documented in this encounter [facility] 05-14-2023 History of Presen t illness Narrative Patient verified by last name and date of . Images from the original note were not included. 05/14/2023 Kristi Weiner (: 1945) is a 78 y.o. female , Established patient, here for evaluation of the following chief complaint(s): Injections (Trigger finger-right thumb) ASSESSMENT/PLAN: 1. Trigger finger of right thumb Assessment & Plan: Injection procedure: Location flexor tendon of right thumb Consent: Verbal Consent Obtained-Discussed risks including hypo/hyperpigmentation, fat atrophy, steroid flare, bleeding and infection and potential consequences of over use of steroids. Prep: Betadine. Anesthesia: 2% lidocaine. Medication: 1 ml depomedrol 40 mg. Needle: 25 gauge 1.5 in. needle. Complications: No Complications, Hemostasis achieved. [facility]: 9269-7067-83 LOT:[id number] [facility]: 95901-539-33 LOT: [id number] Orders: - Injection tendon or ligament - methylPREDNISolone acetate (DEPO-Medrol) injection 20 mg; 20 mg, Intra-artICUlar, Once, On Sat05/14/23 at 1630, For 1 dose - lidocaine (Xylocaine) 2 % injection 1 mL; 1 mL, Injection, Once, On Sat05/14/23 at 1630, For 1 dose Follow up if symptoms worsen or fail to improve. SUBJECTIVE/OBJECTIVE: ORLANDO Vargas comes in today for follow-up on her trigger finger of her right thumb. She would like to have that injected with cortisone she has had this done in the past with good results. Review of Systems Vitals: 05/14/23 1411 BP: (!) 144/66 Pulse: 74 SpO2: 95% Weight: 144 lb 3.2 oz (65.4 kg) Height: 5' 1 (1.549 m) Physical Exam Right thumb with nodularity to the flexor tendon with some popping sensation. Tender to palpation. An electronic signature was used to authenticate this note. Ronald Casillas MD 05/14/2023 4:19 PM documented in this encounter [facility] 04-29-2023 Telephone encounter Note Reviewed chart. Refill appropriate. RX sent. [facility] 04-29-2023 Miscellaneous Notes Reviewed chart. Refill appropriate. RX sent. Prescription Request: Last medication check: 11/09/22 Last physical exam: 05/10/22 Next scheduled appointment: 05/13/23 Last date of refill on this medication 11/09/[address] this encounter [facility] 04-29-2023 Telephone encounter Note Prescription Request: Last medication check: 11/09/22 Last physical exam: 05/10/22 Next scheduled appointment: 05/13/23 Last date of refill on this medication 11/09/22 [facility] 02-13-2023 Note Injection procedure: Location right thumb flexor tendon Consent: Verbal Consent Obtained-Discussed risks including hypo/hyperpigmentation, fat atrophy, steroid flare, bleeding and infection and potential consequences of over use of steroids. Prep: Betadine. Anesthesia: 2% lidocaine. Medication: 1 ml depomedrol 40 mg. Needle: 30 gauge 1 in. needle. Complications: No Complications, Hemostasis achieved. [facility]: 77430-714-11 LOT: [id number] [facility] 84977-509-56 LOT: [id number] [facility] 02-07-2023 Note Patient stopped into office and given results. If she decides to move forward with the referral she will let us know. [facility] 02-07-2023 Note ----- Message from KENNY Velazquez CNP sent at 02/07/2023 11:06 AM EDT ----- Xray normal. No fracture or significant arthritis. Would recommend referral to see hand specialist if not improving with splint, rest. [facility] 01-29-2023 Evaluation + Plan note Associated Problem(s): Pain of right thumb Likely strain. Will splint x1 to 2 weeks,RICE. And activity as tolerated avoid heavy lifting for at least 1 month. If symptoms worsen or fail to improve in the next 2 weeks would recommend getting x-ray completed and following up in office as directed. [facility] 01-29-2023 Miscellaneous Notes Associated Problem(s): Pain of right thumb Likely strain. Will splint x1 to 2 weeks,RICE. And activity as tolerated avoid heavy lifting for at least 1 month. If symptoms worsen or fail to improve in the next 2 weeks would recommend getting x-ray completed and following up in office as directed. Addended by: MINNIE LOPEZ on: 01/30/2023 05:14 PM Modules accepted: Level of Service documented in this encounter [facility] 01-28-2023 History of Presen t illness Narrative Carbonation Tester for Intimate and Non Intimate Exam Carbonation Tester was declined Carbonation Tester: na Images from the original note were not included. 01/28/2023 Kristi Weiner (: 1945) is a 77 y.o. female , Established patient, here for evaluation of the following chief complaint(s): Hand Pain (Right thumb/Lifting x3 weeks ago felt a pop) ASSESSMENT/PLAN: 1. Pain of right thumb Assessment & Plan: Likely strain. Will splint x1 to 2 weeks,RICE. And activity as tolerated avoid heavy lifting for at least 1 month. If symptoms worsen or fail to improve in the next 2 weeks would recommend getting x-ray completed and following up in office as directed. Orders: - XR fingers 2+ views right Follow up if symptoms worsen or fail to improve. SUBJECTIVE/OBJECTIVE: [place] - Kristi Weiner (: 1945) is a 77 y.o. female , Established patient, here for the evaluation of the following chief complaint(s): Hand Pain (Right thumb/Lifting x3 weeks ago felt a pop) Pain with flexing of the thumb. Did not have initial swelling or redness. Has been trying to rest her thumb however works with her hands quite a bit and is still having pain when flexing the thumb. No fever no chills no redness to the joint. Has not injured her finger before. Denies any other issues with joints in the hands Prior to Admission medications Medication Sig Start Date End Date Taking? Authorizing Provider alpha tocopherol (Vitamin E) 400 units capsule Take 400 Units by mouth. Yes Historical Provider, atorvastatin (Lipitor) 10 MG tablet Take 1 tablet (10 mg) by mouth every morning. 11/09/22 Yes Ronald Casillas MD B Complex Vitamins (B COMPLEX PO) Take by mouth. Yes Historical Provider, Calcium Carb-Cholecalciferol (CALCIUM 1000 + D PO) Take by mouth. Yes Historical Provider, cholecalciferol (Vitamin D-3) 25 MCG (1000 UT) capsule Take by mouth. Yes Historical Provider, COD LIVER OIL/VITAMINS A & D PO Take by mouth. Yes Historical Provider, coenzyme Q-10 50 MG capsule Take by mouth. Yes Historical Provider, cyanocobalamin (Vitamin B-12) 1000 MCG tablet Take 1,000 mcg by mouth daily. Yes Historical Provider, Ferrous Sulfate Dried (High Potency Iron) 65 MG tablet Take by mouth. Yes Historical ProviderMD ketoconazole (NIZOral) 2 % shampoo WASH THE SCALP ONCE WEEKLY, LET SIT 5-10 MINUTES BEFORE RINSING OUT 07/07/22 Yes Historical ProviderMD magnesium gluconate (Magonate) 500 MG tablet Take 500 mg by mouth. Yes Historical ProviderMD Multiple Vitamins-Minerals (Hair Skin and Nails Formula) tablet Take by mouth. Yes Historical ProviderMD Multiple Vitamins-Minerals (PreserVision AREDS 2) capsule Take by mouth. Yes Historical Provider, naproxen (Naprosyn) 250 MG tablet Take 250 mg by mouth in the morning and 250 mg in the evening. Take with meals. 11/24/21 Yes Historical Provider, Fortbenitao injection INJECT 20MCG UNDER THE SKIN ONCE DAILY Patient not taking: Reported on 01/28/2023 11/02/22 Ronald Casillas MD clindamycin (Cleocin) 150 MG capsule TAKE 1 CAPSULE BY MOUTH TWICE DAILY UNTIL GONE 10/29/22 01/28/23 Historical Provider, ReliOn Pen [place] 32G X 4 MM misc USE PEN NEEDLE ONCE DAILY 10/25/22 01/28/23 Historical Provider, Health Maintenance Due Topic Date Due Hepatitis B Vaccines (1 of 3 - 3-dose series) Never done Hepatitis C Screening Never done DTaP/Tdap/Td Vaccines (1 - Tdap) Never done Zoster Vaccines (1 of 2) Never done COVID-19 Vaccine (4 - Booster for Pfizer series) 10/24/2021 Bone Density Scan 11/14/2022 Review of Systems Constitutional: Negative. Musculoskeletal: Right thumb pain Vitals: 01/28/23 1544 BP: 110/64 Pulse: 76 Resp: 20 SpO2: 98% Weight: 145 lb (65.8 kg) Physical Exam Constitutional: Appearance: Normal appearance. Pulmonary: Effort: Pulmonary effort is normal. Musculoskeletal: Hands: Skin: General: Skin is warm and dry. Neurological: Mental Status: She is alert and oriented to person, place, and time. An electronic signature was used to authenticate this note. KENNY Chin CNP 01/28/2023 3:52 PM documented in this encounter [facility] 01-28-2023 Instructions KENNY Chin CNP - 01/28/2023 3:40 PM EDT Wear splint x 7 days, ok to take off to wash hands, after ok to start activity as tolerated. The following attachments cannot be sent through Care Everywhere.Sprained Thumb Discharge Instructions (Stateless)documented in this encounter [facility] 01-28-2023 Note Addended by: MINNIE KELLY on: 01/30/2023 05:14 PM Modules accepted: Level of Service [facility] documented in this encounter [facility] note* Diagnosis Pain of right thumb documented in this encounter [facility] note* Diagnosis Trigger finger of right thumb- Primary documented in this encounter [facility] note* Diagnosis Pain in left ankle and joints of left foot documented in this encounter [facility] note* Diagnosis Sciatic pain, left- Primary Left foot pain Pain in soft tissues of limb documented in this encounter [facility] note* Diagnosis Acute left ankle pain- Primary Left foot pain Pain in soft tissues of limb documented in this encounter [facility] note* Diagnosis Acute left ankle pain- Primary Left foot pain Pain in soft tissues of limb documented in this encounter [facility] note* Diagnosis Acute left ankle pain- Primary documented in this encounter [facility] note* Diagnosis Left lateral ankle pain- Primary documented in this encounter [facility] note* Diagnosis Acute left-sided low back pain with left-sided sciatica documented in this encounter [facility] note* Diagnosis Acute left-sided low back pain with left-sided sciatica- Primary documented in this encounter [facility] note* Diagnosis Acute left ankle pain Left foot pain Pain in soft tissues of limb documented in this encounter [facility] note* Diagnosis Acute left-sided low back pain with left-sided sciatica- Primary documented in this encounter [facility] note* Diagnosis Acute left-sided low back pain with left-sided sciatica- Primary documented in this encounter [facility] note* Diagnosis Acute left-sided low back pain with left-sided sciatica- Primary documented in this encounter [facility] note* Diagnosis Acute left-sided low back pain with left-sided sciatica- Primary documented in this encounter [facility] note* Diagnosis Acute left-sided low back pain with left-sided sciatica- Primary documented in this encounter [facility] note* Diagnosis Dyspareunia, female- Primary [facility]* Diagnosis Pain in left ankle and joints of left foot- Primary Pain in left ankle and joints of left foot documented in this encounter [facility] HealthInstructions* Attachments The following attachments cannot be sent through Care Everywhere. * Sciatica Discharge [facility] (Stateless[facility] Consultation (Routine) - Pending Review Specialty Diagnoses / Procedures Referred By Isabel hernandez Referred To Contact Orthopedic Surgery Diagnoses Acute left ankle pain Left foot pain Ronald Casillas MD [address] [place] [id number] Foster Leora MD [address] [place] [address] [place] [address] Referral ID Status Reason Start Date Expiration Date Visits Requested Visits Authorized [id number] Pending Review Specialty Services Required 06/03/2023 06/02/2024 1 1 * Imaging (Routine) - Pending Review Specialty Diagnoses / Procedures Referred By Isabel hernandez Referred To Contact Radiology Diagnoses Acute left ankle pain Left foot pain Procedures MR ankle left wo contrast Ronald Casillas MD [address] [place] [id number] Referral ID Status Reason Start Date Expiration Date V isits Requested Visits Authorized [id number] Pending Review 06/03/2023 11/30/2023 1 1 [facility] Health Summary Purpose Family History No Family History Records FoundNo Family History Records Found Advance Directives Documents on File Type Date Recorded Patient Industrial Tractor Driver Expl anation Power of Biological Technician 06/24/2023 11:16 AM Documents on File Type Date Recorded Patient Industrial Tractor Driver Expl anation Power of Biological Technician 06/24/2023 11:16 AM Reason for Referral Specialty Diagnoses / Procedures Referred By Isabel hernandez Referred To Contact Diagnoses Trigger finger of right thumb Ronald Casillas MD [address] [place] [address] Referral ID Status Reason Start Date Expiration Date V isits Requested Visits Authorized [id number] Pending Review 05/14/2023 11/10/2023 1 1 Specialty Diagnoses / Procedures Referred By Contac t Referred To Contact Diagnoses Left lateral ankle pain Sukumaral, Minnie, DRUM CARRIER - FLOOR RENOVATOR [address] [place] [address] Referral ID Status Reason Start Date Expiration Date Visits Re quested Visits Authorized [id number] Denied 1 1 Specialty Diagnoses / Procedures Referred By Contac t Referred To Contact Radiology Diagnoses Acute left ankle pain Left foot pain Procedures MR ankle left wo contrast Ronald Casillas MD [address] [place] [address] Referral ID Status Reason Start Date Expiration Date Visits Re quested Visits Authorized [id number] Closed 06/03/2023 11/30/2023 1 1 Additional Source Comments INFORMATION SOURCE (unrecogn ized section and content) DATE CREATED AUTHOR AUTHOR'S ORGANIZ ATION 08/06/2023 [facility] Reason for Visit (unrecogniz ed section and content) Reason Comments Med Refill Reason Comments Injections Trigger finger-right thumb Specialty Diagnoses / Procedures Referred By Contac t Referred To Contact Diagnoses Trigger finger of right thumb Ronald Casillas MD [address] [place] [address] Referral ID Status Reason Start Date Expiration Date V isits Requested Visits Authorized [id number] Pending Review 05/14/2023 11/10/2023 1 1 Reason Onset Date Comments Results 05/20/2023 Reason Comments Ankle Pain Left ankle Reason Comments Leg Pain Left so painful it i s very hard to walk Reason Onset Date Comments Fax Requested 06/07/2023 Reason Onset Date Comments orders and rx 06/10/2023 Release of Information 06/10/2023 Reason Onset Date Comments Ankle Pain 06/11/2023 Reason Comments Ankle Pain Back Pain Intermediate Foot Pain Medication Reaction Tramadol-just sent i n on 06/10/23 Dizziness Dry Mouth Shaking Specialty Diagnoses / Procedures Referred By Contac t Referred To Contact Physical Therapy Diagnoses Acute left-sided low back pain with left-sided sciatica Foster Loera MD [address] [facility] [address] [place] [address] [facility] [address] [place] [address] Referral ID Status Reason Start Date Expiration Date Visits Requested Visits Authorized [id number] Authorized Eval and Treat 06/19/2023 12/16/2023 99 99 Specialty Diagnoses / Procedures Referred By Contac t Referred To Contact Radiology Diagnoses Acute left ankle pain Left foot pain Procedures MR ankle left wo contrast Ronald Casillas MD [address] [place] [address] Referral ID Status Reason Start Date Expiration Date Visits Re quested Visits Authorized [id number] Closed 06/03/2023 11/30/2023 1 1 Reason Onset Date Comments Results 06/26/2023 Reason Comments Abdominal Pain Care Teams (unrecognized sec tion and content) Engineering Analyst Relationship Specialty Start Date End Date Ronald Casillas MD [address] [place] [id number] PCP - General 04/27/21 Engineering Analyst Relationship Specialty Start Date End Date Ronald Casillas MD [address] [place] [id number] PCP - General 04/27/21 Engineering Analyst Relationship Specialty Start Date End Date Ronald Casillas MD [address] [place] [phone] PCP - General 04/27/21 Engineering Analyst Relationship Specialty Start Date End Date Ronald Casillas MD [address] [place], [place] [address], [place] [address] PCP - General 04/27/21 Engineering Analyst Relationship Specialty Start Date End Date Ronald Casillas MD [address] [facility] [place] [address] PCP - General 04/27/21 Engineering Analyst Relationship Specialty Start Date End Date Ronald Casillas MD [address] [facility] [place] [address] PCP - General 04/27/21 Engineering Analyst Relationship Specialty Start Date End Date Ronald Casillas MD [address] [facility] [place] [address] PCP - General 04/27/21 Engineering Analyst Relationship Specialty Start Date End Date Ronald Casillas MD [address] [facility] [place] [address] PCP - General 04/27/21 Engineering Analyst Relationship Specialty Start Date End Date Ronald Casillas MD [address] [facility] [place] [address] PCP - General 04/27/21 Engineering Analyst Relationship Specialty Start Date End Date Ronald Casillas MD [address] [facility] [place] [address] PCP - General 04/27/21 Engineering Analyst Relationship Specialty Start Date End Date Ronald Casillas MD [address] [facility] [place] [address] PCP - General 04/27/21 Engineering Analyst Relationship Specialty Start Date End Date Ronald Casillas MD [address] [place] [place] [address] PCP - General 04/27/21 Engineering Analyst Relationship Specialty Start Date End Date Ronald Casillas MD [address] [facility] [place] [address] PCP - General 04/27/21 Engineering Analyst Relationship Specialty Start Date End Date Ronald Casillas MD [address] [facility] [place] [address] PCP - General 04/27/21 Engineering Analyst Relationship Specialty Start Date End Date Ronald Casillas MD [address] [facility] [place] [address] PCP - General 04/27/21 Engineering Analyst Relationship Specialty Start Date End Date Ronald Casillas MD [address] [place] [place] [address] PCP - General 04/27/21 Engineering Analyst Relationship Specialty Start Date End Date Ronald Casillas MD [address] [place] [place] [address] PCP - General 04/27/21 Engineering Analyst Relationship Specialty Start Date End Date Ronald Casillas MD [address] [facility] [place] [address] PCP - General 04/27/21 Engineering Analyst Relationship Specialty Start Date End Date Ronald Casillas MD [address] [place], [place] [address] [address] PCP - General 04/27/21 Engineering Analyst Relationship Specialty Start Date End Date Ronald Casillas MD [address] [place], [place] [address] [address] PCP [facility] 04/27/21 Engineering Analyst Relationship Specialty Start Date End Date Ronald Casillas MD [address] [place], [place] [address] [address] [facility] 04/27/21 FOR RECORDS PERTAINING TO PATIENTS WHO ARE OR HAVE BEEN ENROLLED IN A CHEMICAL DEPENDENCY/SUBSTANCEABUSE PROGRAM, SOME INFORMATION MAY BE OMITTED. This clinical summary was aggregated from multiple sources. Caution should be exercised in using it in the provision of clinical care. This summary normalizes information from multiple sources, and as a consequence, information in this document may materially change the coding, format and clinical context of patient data. In addition, data may be omitted in some cases. CLINICAL DECISIONS SHOULD BE BASED ON THE PRIMARY CLINICAL RECORDS. [facility] [employer] [facility]. provides no warranty or guarantee of the accuracy or completeness of information in this document.
== END | disposition home or self-care (01) ==
LOC: OPBD 13:55
PROVIDERS: PCP Family Medicine; Referring Provider Family Medicine; Visit Provider Family Medicine
DX: M81.0 Age-related osteoporosis without current pathological fracture (principal)
CPT/HCPCS: 77080

== ENCOUNTER → 2024-04-22 | Outpatient (CLI) | payer MEDICARE, SELFPAY ==
[2024-04-22 12:22] LABS: Vitamin D,25 Hydroxy 40.4 ng/mL
== END | disposition home or self-care (01) ==
PROVIDERS: PCP Family Medicine; Referring Provider Family Medicine; Visit Provider Family Medicine
DX: R60.9 Edema, unspecified (principal); E55.9 Vitamin D deficiency, unspecified
CPT/HCPCS: 36415; 82306

== ENCOUNTER → 2024-04-24 | Outpatient (CLI) | payer MEDICARE, SELFPAY ==
--- NOTE | 2024-04-24 09:18 | US_ITS ---
STUDY: ABDOMINAL ULTRASOUND - RIGHT UPPER QUADRANT REASON FOR VISIT: Female, 79 years old RUQ PAIN TECHNIQUE: Ultrasound evaluation of the right upper quadrant was performed with real-time and static decker-scale imaging. TECHNICAL QUALITY: Adequate. COMPARISON: None. FINDINGS: Liver: The liver is enlarged and measures 18.4 cm. There is normal echogenicity of the liver. The bile ducts are within normal limits. There is hepatic color flow. The direction of portal flow is hepatopetal. There is no demonstrated mass lesion. Gallbladder: Normal distended gallbladder. The gallbladder wall measures 1.3 mm. There is a negative sonographic Wyman''s sign. There is no pericholecystic fluid. There are no gallstones. Common Bile Duct (C.B.D.): The common bile duct measures 5.5 mm. Pancreas: Normal size of the head, body and tail of the pancreas. There is normal echogenicity of the pancreas. 2 cm x 2 cm x 0.8 cm hypodense nodule along the posterior aspect of the head of the pancreas. This may represent a small lymph node. Correlation with a CT scan of the abdomen is recommended. Right Kidney: Normal size of the right kidney. The right kidney measures 10.8 cm x 4.6 cm x 3.6 cm. Normal renal cortex. The right cortex measures 1.5 cm. There is no demonstrated renal mass or cyst. There is no right hydronephrosis. US/Abdomen Limited IMPRESSION: Normal right upper quadrant ultrasound examination. 2 cm x 2 cm x 0.8 cm hypodense nodule in the posterior aspect of the head of the pancreas. This may represent a lymph node. Correlation with the CT scan of the abdomen is recommended. Electronically Signed: Dalton Meyer MD at 11:20 EDT ,
== END | disposition home or self-care (01) ==
PROVIDERS: PCP Family Medicine; Referring Provider Family Medicine; Visit Provider Family Medicine
DX: R10.11 Right upper quadrant pain (principal)
CPT/HCPCS: 76705

== ENCOUNTER → 2024-05-13 | Outpatient (CLI) | payer MEDICARE, SELFPAY ==
--- NOTE | 2024-05-13 08:43 | CT_ITS ---
STUDY: CT ABDOMEN WITH AND WITHOUT CONTRAST REASON FOR EXAM: Female, 79 years old. pancreatic abnormality RADIATION DOSAGE (If Supplied By Facility): CTDIvol = ( 10.16 ) mGy, DLP = ( 729.35 ) mGycm TECHNIQUE: Transaxial images were obtained pre and post I.V. administration of Oral Readi-CAT and amp; 75mL Isovue 300, and with oral contrast. Sagittal and coronal images were reconstructed. Individualized dose optimization techniques were used for this CT. COMPARISON: Ultrasound 04/24/2024 FINDINGS: The visualized lung bases are unremarkable. The visualized portions of the heart are within normal limits. Normal liver. Normal gallbladder and extrahepatic biliary system. Normal spleen. Normal pancreas. Normal bilateral adrenal glands. Normal right kidney. Normal left kidney. Normal visualized stomach. Normal small intestine. Normal colon. There is non-visualization of the appendix. Normal abdominal aorta. Normal inferior vena cava. Normal retroperitoneum. Normal abdominal wall. Normal osseous structures. CT/Abdomen W/WO IV Contrast IMPRESSION: Normal unenhanced and enhanced CT of the abdomen. In particular, no pancreatic mass as suggested on recent ultrasound. Electronically Signed: Tye Goodwin MD at 11:30 EDT ,
[2024-05-13 09:19] LABS: CREATININE FINGERSTICK < 1.0 mg/dL (0.55-1.02); EGFR FINGERSTICK > 60.0000 mL/min (>60)
== END | disposition home or self-care (01) ==
PROVIDERS: PCP Family Medicine; Referring Provider Family Medicine; Visit Provider Family Medicine
DX: Z01.812 Encounter for preprocedural laboratory examination (principal); Q45.3 Other congenital malformations of pancreas and pancreatic duct
CPT/HCPCS: 74170; Q9967

== ENCOUNTER → 2025-02-03 | Outpatient (CLI) | payer OTHER, SELFPAY ==
[2025-02-03 10:25] LABS: Basophil# 0.06 X10^3/uL; Basophil% 1.2 % (0-1); Eosinophil# 0.27 X10^3/uL; Eosinophils% 5.3 % (0-5); Hematocrit 39.2 % (37-47); Hemoglobin 12.9 g/dL (12.0-15.0); Lymphocyte % 25.5 % (19-41); Mean Corp Hgb Conc 32.9 g/dL (32-36); Mean Corpuscular Hgb 29.3 pg (27.0-32.0); Mean Corpuscular Volume 89.1 fL (81-99); Mean Platelet Vol. 11.7 fl (6.2-12.0); Monocyte# 0.42 X10^3/uL; Monocyte% 8.3 % (0-10); NRBC Flagged by Analyzer 0 % (0-5); Neutrophil # 3.03 X10^3/uL (2.7-7.7); Neutrophil % 59.5 % (47-70); Platelet Count 261 K/mm3 (150-450); RBC Distribution Width CV 13.7 % (11.6-14.6); RBC Distribution Width SD 44.9 fl (35.1-43.9); White Blood Count 5.1 K/mm3 (4.4-11.0)
[2025-02-03 11:25] LABS: ALB/GLOB Ratio 1.6 RATIO (0.9-2.4); AST(SGOT) 26 U/L (<=31); Alanine Aminotransfer ALT/SGPT 28 U/L (<=34); Albumin, Serum 4.2 g/dL (3.4-4.8); Alkaline Phosphatase 77 U/L (35-104); Anion Gap 11 (5-15); BUN 12 mg/dL (4-19); BUN/Creat Ratio 18.2 RATIO (10-20); Calcium,Total 9.6 mg/dL (7.6-11.0); Carbon Dioxide 25.5 mmol/L (21.0-32.0); Chloride 105 mmol/L (98-108); Cholesterol 188 mg/dL (<=200); Creatinine, Serum 0.64 mg/dL (0.70-1.20); EST Glomerular Filtration Rate 90 (>60); Globulin 2.6 g/dL (2.2-4.2); Glucose 96 mg/dL (70-99); High Density Lipoprotein 67 mg/dL; Low Density Lipoprotein Calc. 109 mg/dL; Potassium 3.8 mmol/L (3.3-5.1); Protein, Total 6.8 g/dL (5.9-8.4); Sodium Level 142 mmol/L (133-145); Total Bilirubin 0.69 mg/dL (0.00-1.30); Triglycerides 59 mg/dL; Very Low Density Lipoprotein 12 mg/dL (5-40); cholesterol:hdl ratio screen 2.79
[2025-02-03 12:31] LABS: Vitamin D,25 Hydroxy 53.9 ng/mL (30-100)
== END | disposition home or self-care (01) ==
LOC: MFPLAB 08:07
PROVIDERS: PCP Family Medicine; Referring Provider Family Medicine; Visit Provider Family Medicine
DX: R60.9 Edema, unspecified (principal); E55.9 Vitamin D deficiency, unspecified; E78.2 Mixed hyperlipidemia
CPT/HCPCS: 36415; 80053; 80061; 82306; 85025

== ENCOUNTER → 2025-03-01 | Outpatient (CLI) | payer MEDICARE, SELFPAY ==
--- NOTE | 2025-03-01 10:42 | RAD_ITS ---
PROCEDURE: HAND MIN 3 VIEWS 03/01/2025 REASON FOR EXAM: RIGHT HAND, 4TH AND 5TH FINGER INJURY TECHNIQUE: 3 view(s) of the right hand COMPARISON: None FINDINGS: No displaced fracture or traumatic malalignment. Mild joint space narrowing throughout the interphalangeal joints bone mineral density is subjectively normal. Soft tissues are unremarkable. RAD/Hand Min 3 Views IMPRESSION: No acute osseous abnormality. Mild degenerative changes throughout the interph alangeal joints. Reading Location: [facility]
== END | disposition home or self-care (01) ==
LOC: MTRAD 10:41
PROVIDERS: PCP Family Medicine; Referring Provider Family Medicine; Visit Provider Family Medicine
DX: M79.646 Pain in unspecified finger(s) (principal)
CPT/HCPCS: 73130